=== PATIENT | male | born 1975 | race Caucasian/White ===

== ENCOUNTER 2020-08-27 12:32 | Outpatient (REF) | payer BC, SELFPAY | END 2020-08-27 12:33 | disposition home or self-care (01) | LOC: HO.LAB 12:32 | PROVIDERS: PCP Physician Assistant; Visit Provider Internal Medicine | DX: Z20.828 Contact with and (suspected) exposure to other viral communicable diseases (principal) | CPT/HCPCS: C9803; U0003 ==

== ENCOUNTER 2021-07-24 15:34 | Outpatient (REF) | payer BC, SELFPAY ==
--- NOTE | ~2021-07-24 | XR_ITS ---
EXAMINATION: XR FOOT-BILATERAL CLINICAL INFORMATION: Right foot pain. COMPARISON: None TECHNIQUE: 3 views each of both feet were obtained. FINDINGS: Right foot: Mild osteoarthrosis is noted at the first MTP joint. Enthesopathy is noted at the insertional site of the Achilles tendon to the calcaneus. Accessory ossicle is noted adjacent to the cuboid. Otherwise, the visualized bones, the alignments are intact. The soft tissues are unremarkable. Left foot: The bony alignments are intact. The cortices are intact. Accessory ossicle is noted adjacent to the cuboid. Significant enthesopathy at the insertional site of the Achilles tendon to the calcaneus and small posterior plantar calcaneal spur. XR/XR foot LT min 3V IMPRESSION: 1. Mild osteoarthrosis of the right first MTP joint. 2. Enthesopathy is at the insertional site of the Achilles tendon to the calcaneus seen bilaterally (left greater than right). 3. Small left posterior plantar calcaneal spur.
--- NOTE | ~2021-07-24 | XR_ITS ---
EXAMINATION: XR FOOT-BILATERAL CLINICAL INFORMATION: Right foot pain. COMPARISON: None TECHNIQUE: 3 views each of both feet were obtained. FINDINGS: Right foot: Mild osteoarthrosis is noted at the first MTP joint. Enthesopathy is noted at the insertional site of the Achilles tendon to the calcaneus. Accessory ossicle is noted adjacent to the cuboid. Otherwise, the visualized bones, the alignments are intact. The soft tissues are unremarkable. Left foot: The bony alignments are intact. The cortices are intact. Accessory ossicle is noted adjacent to the cuboid. Significant enthesopathy at the insertional site of the Achilles tendon to the calcaneus and small posterior plantar calcaneal spur. XR/XR foot RT min 3V IMPRESSION: 1. Mild osteoarthrosis of the right first MTP joint. 2. Enthesopathy is at the insertional site of the Achilles tendon to the calcaneus seen bilaterally (left greater than right). 3. Small left posterior plantar calcaneal spur.
== END 2021-07-24 15:35 | disposition home or self-care (01) ==
LOC: HO.XRAY 15:34
PROVIDERS: PCP Physician Assistant; Visit Provider Nurse Practitioner Family
DX: M79.671 Pain in right foot (principal); M79.672 Pain in left foot
CPT/HCPCS: 73630

== ENCOUNTER 2021-07-25 08:22 | Outpatient (REF) | payer BC, SELFPAY ==
[2021-07-25 08:44] LABS: MANUAL DIFF FLAG NO
[2021-07-25 09:37] LABS: Basophils Percent Auto 0.5 % (0-2); Eosinophils Absolute Auto 0.3 X10*3/uL (0.0-0.4); Eosinophils Percent Auto 4.7 % (0-4); Hematocrit 43.1 % (42.0-52.0); Hemoglobin 14.4 g/dl (14.0-18.0); Imm Gran Abs Auto 0.02 X10*3/uL (0.00-0.03); Imm Gran Pct Auto 0.3 % (0.0-0.4); Lymphocytes Absolute Auto 2.7 X10*3/uL (1.2-4.9); Lymphocytes Percent Auto 36.7 % (20-40); Mean Corpuscular HGB Conc 33.4 g/dl (31.0-36.0); Mean Corpuscular Hemoglobin 29.2 pg (27.0-33.0); Mean Corpuscular Volume 87.4 fL (80.0-98.0); Mean Platelet Volume 9.7 fL (9.4-12.4); Monocytes Absolute Auto 0.6 X10*3/uL (0.1-1.2); Monocytes Percent Auto 8.5 % (2-11); Neutrophils Absolute Auto 3.6 x10*3/uL (2.0-8.3); Neutrophils Percent Auto 49.3 % (45-73); Platelet Count 241 X10*3/uL (160-400); Red Blood Count 4.93 X10*6/uL (4.60-5.80); Red Cell Distribution Width 13.2 % (11.0-16.0); White Blood Count 7.3 X10*3/uL (4.8-10.8)
[2021-07-25 09:40] LABS: Estimated Average Glucose 148 mg/dL; Hemoglobin A1c % 6.8 %
[2021-07-25 09:48] LABS: Glucose Fasting 135 mg/dL (60-99)
[2021-07-25 10:01] LABS: Alanine Aminotransferase 17 U/L (0-40); Albumin Level 4.3 g/dL (3.5-5.0); Alkaline Phosphatase 66 U/L (39-117); Anion Gap 10 (12-20); Aspartate Amino Transferase 14 U/L (5-37); Bilirubin Total 0.5 mg/dL (0.0-1.0); Blood Urea Nitrogen 15 mg/dL (9-16); Calcium 9.5 mg/dL (8.4-10.2); Carbon Dioxide 27 mmol/L (22-29); Chloride 110 mmol/L (96-108); Cholesterol 216 mg/dL; Estimated Glomerular Filt Rate > 60; Glucose Fasting 135 mg/dL (60-99); HDL Cholesterol 35 mg/dL; LDL Cholesterol Calculated 152 mg/dl; Potassium 4.3 mmol/L (3.3-5.1); Sodium 143 mmol/L (135-145); Triglycerides 145 mg/dL
[2021-07-25 10:02] LABS: Uric Acid 7.6 mg/dL (3.4-7.0)
== END 2021-07-25 08:23 | disposition home or self-care (01) ==
LOC: HO.LAB 08:22
PROVIDERS: PCP Physician Assistant; Visit Provider Nurse Practitioner Family
DX: E11.9 Type 2 diabetes mellitus without complications (principal); M10.9 Gout, unspecified; E78.00 Pure hypercholesterolemia, unspecified; I10 Essential (primary) hypertension
CPT/HCPCS: 36415; 80053; 80061; 82947; 83036; 84550; 85025

== ENCOUNTER 2022-02-22 09:07 | Outpatient (REF) | payer BC, SELFPAY ==
[2022-02-22 10:57] LABS: Alanine Aminotransferase 19 U/L (0-40); Albumin Level 4.4 g/dL (3.5-5.0); Alkaline Phosphatase 75 U/L (39-117); Anion Gap 14 (12-20); Aspartate Amino Transferase 18 U/L (5-37); Bilirubin Total 0.6 mg/dL (0.0-1.0); Blood Urea Nitrogen 16 mg/dL (9-16); Calcium 9.4 mg/dL (8.4-10.2); Carbon Dioxide 21 mmol/L (22-29); Chloride 109 mmol/L (96-108); Cholesterol 207 mg/dL; Estimated Glomerular Filt Rate > 60; Glucose Fasting 112 mg/dL (60-99); HDL Cholesterol 37 mg/dL; LDL Cholesterol Calculated 149 mg/dl; Potassium 4.2 mmol/L (3.3-5.1); Sodium 140 mmol/L (135-145); Total Protein 7.3 g/dL (6.5-8.0); Triglycerides 107 mg/dL; Uric Acid 5.8 mg/dL (3.4-7.0)
[2022-02-22 10:59] LABS: Estimated Average Glucose 128 mg/dL; Hemoglobin A1c % 6.1 %
[2022-02-22 11:03] LABS: Prostate Specific Antigen Scr 0.72 ng/mL (<0.05-4.0); TSH reflex Free T4 1.71 uIU/mL (0.32-4.0)
[2022-02-22 11:17] LABS: Creatinine Urine 105.08 mg/dL; Microalbum/Creatinine Ratio Ur 5.7 ug/mg cr
== END 2022-02-22 09:08 | disposition home or self-care (01) ==
LOC: HO.LAB 09:07
PROVIDERS: PCP Physician Assistant; Visit Provider Physician Assistant
DX: E11.9 Type 2 diabetes mellitus without complications (principal); E78.5 Hyperlipidemia, unspecified; M10.9 Gout, unspecified; Z12.5 Encounter for screening for malignant neoplasm of prostate
CPT/HCPCS: 36415; 80053; 80061; 82043; 83036; 84153; 84443; 84550

== ENCOUNTER 2023-02-09 06:45 | Outpatient (REF) | payer BC, SELFPAY ==
[2023-02-09 07:53] LABS: Hematocrit 42.1 % (42.0-52.0); Hemoglobin 14.4 g/dl (14.0-18.0); Mean Corpuscular HGB Conc 34.2 g/dl (31.0-36.0); Mean Corpuscular Volume 84.7 fL (80.0-98.0); Mean Platelet Volume 9.6 fL (9.4-12.4); Platelet Count 263 X10*3/uL (160-400); Red Blood Count 4.97 X10*6/uL (4.60-5.80); Red Cell Distribution Width 13.1 % (11.0-16.0); White Blood Count 10.1 X10*3/uL (4.8-10.8)
[2023-02-09 08:03] LABS: Estimated Average Glucose 131 mg/dL; Hemoglobin A1c % 6.2 %
[2023-02-09 08:29] LABS: Alanine Aminotransferase 21 U/L (0-40); Albumin Level 4.2 g/dL (3.5-5.0); Alkaline Phosphatase 74 U/L (39-117); Anion Gap 12 (12-20); Aspartate Amino Transferase 17 U/L (5-37); Bilirubin Total 0.6 mg/dL (0.0-1.0); Blood Urea Nitrogen 15 mg/dL (9-16); Calcium 9.4 mg/dL (8.4-10.2); Carbon Dioxide 24 mmol/L (22-29); Chloride 109 mmol/L (96-108); Cholesterol 208 mg/dL; Estimated Glomerular Filt Rate > 60; Glucose Fasting 122 mg/dL (60-99); HDL Cholesterol 36 mg/dL; LDL Cholesterol Calculated 145 mg/dl; Potassium 4.3 mmol/L (3.3-5.1); Sodium 141 mmol/L (135-145); Total Protein 7.1 g/dL (6.5-8.0); Triglycerides 135 mg/dL
[2023-02-09 08:50] LABS: TSH reflex Free T4 3.38 uIU/mL (0.32-4.0)
[2023-02-09 09:18] LABS: Creatinine Urine 125.24 mg/dL; Microalbum/Creatinine Ratio Ur 4.7 ug/mg cr
== END 2023-02-09 06:46 | disposition home or self-care (01) ==
LOC: HO.LAB 06:45
PROVIDERS: PCP Physician Assistant; Visit Provider Physician Assistant
DX: E11.9 Type 2 diabetes mellitus without complications (principal); E78.2 Mixed hyperlipidemia
CPT/HCPCS: 36415; 80053; 80061; 82043; 83036; 84443; 85027

== ENCOUNTER 2023-04-11 10:32 | Outpatient (REF) | payer BC, SELFPAY ==
--- NOTE | ~2023-04-11 | US_ITS ---
EXAMINATION: US SCROTUM CLINICAL INFORMATION: Scrotal pain. COMPARISON: None available. TECHNIQUE: A sonogram of the scrotum was performed assessing gregory-scale appearance and color Doppler flow. Spectral Doppler analysis of the arterial and venous flow were performed in the testes bilaterally. FINDINGS: RIGHT: Right testicle measures 4.7 x 2.1 x 3.0 cm, volume 15.5 mL. 4 mm right epididymal cyst. Testicular microlithiasis. Spectral Doppler analysis of the arterial and venous flow is normal in the right testis. Right epididymis appears asymmetrically enlarged with respect to the contralateral side however without hypervascularity, given the provided images a discrete epididymal lesion would be difficult to entirely exclude. Small hydrocele containing debris. No right varicocele is seen. Right epididymal Doppler flow is normal. LEFT: Left testicle measures 4.5 x 2.2 x 3.4 cm, volume 17.6 mL. Testicular microlithiasis. Few small epididymal head cysts measuring 2 mm. No suspicious mass. Spectral Doppler analysis of the arterial and venous flow is normal in the left testis. Left epididymal head is normal in size. Trace left hydrocele. No left varicocele is seen. Left epididymal Doppler flow is normal. US/US scrotum IMPRESSION: 1. Right epididymis appears asymmetrically enlarged with respect to the contralateral side however without hypervascularity, possibly secondary to tubular ectasia of the epididymis. Given the provided images a discrete epididymal lesion would be difficult to entirely exclude and therefore short interval follow-up scrotal ultrasound is recommended with attention to the epididymal head. 2. Small right hydrocele containing debris. Trace left hydrocele. 3. Testicular microlithiasis is present without intratesticular mass.
== END 2023-04-11 10:33 | disposition home or self-care (01) ==
LOC: HO.HMGCX 10:32
PROVIDERS: PCP Physician Assistant; Visit Provider Physician Assistant
DX: N50.82 Scrotal pain (principal)
CPT/HCPCS: 76870

== ENCOUNTER 2023-06-22 11:54 | Outpatient (AMB) | payer BC, SELFPAY ==
--- NOTE | 2023-06-22 11:54 | MHC.PC.OV ---
Vital Signs 06/22/23 11:55 Height 5 ft 7 in Weight 264 lb 8 oz BMI 41.4 BP 130/82 Blood Pressure Location Lt brachial Position Sitting Respiration 17 Pulse 75 Pulse Source Pulse Oximeter Pulse Oximetry (%) 98 Oxygen Delivery Method Room Air Intake Visit Reasons: f/u DMII Intake Note: Patient is here to follow up on DMII. Cardiac Sonographer Required: No Accompanied by: Self / Same As Patient Allergies peach [[place]] Allergy (Intermediate, Verified 06/22/23 12:00) SCRATCHY EARS AND BACK OF THROAT apple [Apple] Allergy (Unknown, Verified 06/22/23 12:00) SCRATCHY EARS, BACK OF THROAT Medication List - Last Reconciled 06/22/23 by Contreras Rodriguez PA-C [Diabetic foot inserts As directed] semaglutide 0.25 mg (0.368 mL) subcut QWEEK 4 weeks Tobacco use date assessed: 02/10/23 Dental Screening Dental Screen Date: 06/22/23 Did you have a dental visit in the last 12 months?: No Did you have a dental problem in the last 6 months where you did not have access to dental care?: No Was dental information given to patient?: Patient declined HPI f/u DMII HPI Details Patient is a 47-year-old male here FOR FOLLOW-UP VISIT ?Patient has a past medical history significant for obesity, type 2 diabetes, gout. .. Chronic Achilles tendinitis: Followed by Podiatry, has done physical therapy and tried anti-inflammatory medications without much relief. Has now has new shoe inserts which are somewhat helpful. ? He wants to be more physically active though his hindered by his bilateral foot pain and swelling on upon physical activity. He is now very frustrated with his bilateral Achilles tendinitis as he has not been able to be more physically active due to his Achilles pain . He would like a 2nd opinion from orthopedics .. Obesity: Fortunately HAS NOT LOST ANY WEIGHT SINCE LAST OFFICE VISIT.. Has been started on Ozempic 0.25 mg. PLAN: Advised to increase a sent back dose to 0.5 mg weekly. .. DMII:? Patient cannot tolerate metformin. Has been started on Ozempic, denies any side effects. Unfortunately has not gotten fasting labs done and will do so in the next month. .. Hyperlipidemia:? Have noted elevated total cholesterol and LDL.? We did discuss perhaps starting cholesterol medication though would like to hold off and work on lifestyle management of his cholesterol at this time. [facility] Surgical History History of shoulder surgery Family History Father HIV (human immunodeficiency virus infection) Cirrhosis Substance use disorder Mental health disorder Mother Diabetes Maternal Grandmother Diabetes Hypertension Maternal Aunt Stomach cancer Maternal Aunt Breast cancer Maternal Grandmother Ovarian cancer Social History Housing: House Alcohol intake: current Alcohol intake frequency: holidays/special occasions only Patient Tobacco Use Status: Tobacco use Unknown (Patient has a cigar once in a while) Tobacco use type: Cigar e-Cigarette/Vaping Use: Never Used Substance Use Type: Marijuana service: No Current occupational status: employed 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 Augusto Laboy, Crystal Shukla, Ricky Zamorano and colleagues, with an educational ankit from [employer]. Review of Systems Const Denies headache(s) Eyes Denies loss of vision ENT Denies vertigo, Denies dizziness, Denies headache(s) and Denies sore throat Card Denies chest pain, Denies leg edema and Denies lightheadedness Resp Denies cough, Denies hemoptysis and Denies wheezing GI Denies abdominal pain, Denies melena, Denies constipation, Denies diarrhea and Denies vomiting Denies dysuria, Denies urinary frequency and Denies urinary urgency Musc Denies arthralgias, Denies joint swelling, Denies numbness and Denies tingling Neuro Denies Abnormal speech present, Denies behavioral changes, Denies vertigo, Denies dizziness, Denies headache(s), Denies loss of vision, Denies memory loss, Denies numbness and Denies tingling Psych Denies anxiety, Denies behavioral changes, Denies depression, Denies memory loss and Denies panic attacks Ori/Lymph Denies easy bleeding and Denies easy bruising Aller/Immun Denies wheezing Physical exam (Primary Care) Vital Signs: Last Vital Signs Pulse 75 06/22/23 11:55 Resp 17 06/22/23 11:55 BP 130/82 06/22/23 11:55 Pulse Ox 98 06/22/23 11:55 Oxygen Delivery Method Room Air 06/22/23 11:55 BMI result Body Mass Index 41.4 BMI Assessment/Plan discussion: High Tobacco/Smoking Status: Tobacco use Status Tobacco use date assessed 02/10/23 06/22/23 11:54 Patient Tobacco Use Status Tobacco use Unknown (Patient 06/22/23 11:54 has a cigar once in a while ) Tobacco use type Cigar 06/22/23 11:54 e-Cigarette/Vaping Use Never Used 06/22/23 11:54 Thrive Assessment: Date of Thrive Assessment Date Thrive assessed 02/10/23 06/22/23 11:54 Const Other: Morbidly obese General: no acute distress, alert and awake Nutritional Appearance: well nourished Orientation/consciousness: oriented to person, oriented to place and oriented to time HENMT Ears: TM's normal bilaterally General nose exam: Normal nasal mucous membranes and turbinates present Eyes Conjunctivae: conjunctivae normal Sclerae: sclerae normal Pupils: Equal, round and reactive pupils present Neck Neck: Yes no lymphadenopathy and Yes no JVD Thyroid: Thyroid normal Carotids: no bruits Resp Effort & Inspection: normal respiratory effort and not tachypneic Auscultation: no crackles, no rales, no rhonchi and no wheezes Cardio Rate: regular rate Rhythm: regular rhythm Heart sounds: no murmurs and normal S1 and S2 GI Palpation (GI): Soft to palpation, nontender, no hepatomegaly and no splenomegaly Auscultation: normal bowel sounds Skin General skin exam: no rashes or lesions noted and dry skin Neuro General: oriented to person, oriented to place and oriented to time Cranial nerves: Yes Equal, round and reactive pupils present Speech: No Abnormal speech present Gait exam (Neuro): Normal gait present Motor exam (neuro): no tremor noted Extrem Right upper extremity: full ROM Left upper extremity: full ROM Right lower extremity: full ROM; no edema Left lower extremity: full ROM; no edema Psych Mental Status: mental status grossly normal Speech and movement: Normal speech and movement present Affect: normal affect Attitude: cooperative Thought process: Normal thought process present Assessment and Plan Assessment & Plan (1) Diabetes type 2, controlled: Code(s): E11.9 - Type 2 diabetes mellitus without complications Qualifiers: Diabetes mellitus complication status: without complication Diabetes mellitus intermediate manager insulin use: without intermediate manager use Qualified Code(s): E11.9 - Type 2 diabetes mellitus without complications Plan: Patient's type 2 diabetes fairly well controlled with Ozempic. Advised to increase GLP1 dose to 0.5 mg weekly. Goal A1c to remain below 7.0 (2) Obese: Code(s): E66.9 - Obesity, unspecified Qualifiers: Body mass index: BMI 40.0-44.9 Obesity classification: adult class 3 (BMI >= 40) Obesity type: due to excess calories Serious obesity comorbidity presence: with serious comorbidity Qualified Code(s): E66.01 - Morbid (severe) obesity due to excess calories; Z68.41 - Body mass index [BMI] 40.0-44.9, adult Plan: As above patient does understand his BMI is above 40 and has had difficult time losing weight due to his chronic bilateral heel and Achilles pain. (3) HLD (hyperlipidemia): Code(s): E78.5 - Hyperlipidemia, unspecified Qualifiers: Hyperlipidemia type: mixed hyperlipidemia Qualified Code(s): E78.2 - Mixed hyperlipidemia Plan: Patient's cholesterol slightly elevated for his cardiovascular risk. Offered him statin therapy though he declines will like to work on dietary modifications. Goal LDL to be below 100 (4) Tendonitis, Achilles: Code(s): M76.60 - Achilles tendinitis, unspecified leg Qualifiers: Laterality: bilateral Qualified Code(s): M76.61 - Achilles tendinitis, right leg; M76.62 - Achilles tendinitis, left leg Plan: As per HPI patient continues to have bilateral Achilles tendon tendinitis. Has seen a sole seamer who recommended specialist physical therapy and shoe inserts which he has done without much relief. Whenever he is physically active his bilateral Achilles tendons start to become painful causing him not to be able to be physically active. He would like a 2nd opinion with forest fire prevention specialist to evaluate his ankle and Achilles tendinitis. Orders: Orders Hemoglobin A1c 06/22/23 E11.9 - Type 2 diabetes mellitus without complications Prostate Specific Antigen Scr 06/22/23 E11.9 - Type 2 diabetes mellitus without complications, Z12.5 - Encounter for screening for malignant neoplasm of prostate Referrals Orthopedics Referral M76.61 - Achilles tendinitis, right leg, M76.62 - Achilles tendinitis, left leg Medications: New prednisone Take 3 tablets x 3 days, 2 tablets x 3 days, 1 tablet x3 days 10 mg PO DIRECTED 9 days 18 tabs 0RF M76.61 - Achilles tendinitis, right leg, M76.62 - Achilles tendinitis, left leg Changed From semaglutide 0.25 mg (0.368 mL) subcut QWEEK 4 weeks 3 mL 2RF E11.9 - Type 2 diabetes mellitus without complications To semaglutide 0.5 mg (0.736 mL) subcut QWEEK 4 weeks 2.944 mL 2RF E11.9 - Type 2 diabetes mellitus without complications Coding Level of Care Code Est Pt Level 4 (35997) Diagnoses Controlled type 2 diabetes mellitus without complication, without long-term current use of insulin E11.9 Diabetes mellitus complication status: without complication Diabetes mellitus mcfp insulin use: without mcfp use Class 3 severe obesity due to excess calories with serious comorbidity and body mass index (BMI) of 40.0 to 44.9 in adult E66.01; Z68.41 Body mass index: BMI 40.0-44.9 Obesity classification: adult class 3 (BMI >= 40) Obesity type: due to excess calories Serious obesity comorbidity presence: with serious comorbidity Mixed hyperlipidemia E78.2 Hyperlipidemia type: mixed hyperlipidemia Achilles tendinitis of both lower extremities M76.61; M76.62 Laterality: bilateral
[2023-06-22 11:55] VITALS: BP 130/82; PULSE 75; RESP 17; O2SAT 98; BMI 41.4
== END 2023-06-22 12:18 | disposition home or self-care (01) ==
PROVIDERS: PCP Physician Assistant; Visit Provider Physician Assistant
DX: E11.9 Type 2 diabetes mellitus without complications (principal); E66.01 Morbid (severe) obesity due to excess calories; Z68.41 Body mass index [BMI] 40.0-44.9, adult; E78.2 Mixed hyperlipidemia; M76.61 Achilles tendinitis, right leg; M76.62 Achilles tendinitis, left leg
CPT/HCPCS: 99214

== ENCOUNTER 2023-07-13 09:00 | Outpatient (AMB) | payer BC, SELFPAY ==
--- NOTE | 2023-07-13 09:03 | A.OFFVIS_ITS ---
Intake Intake Visit Reasons: Hydrocele/epidiymitis Intake Note: New Patient presents for initial visit for hydrocele/epidiymitis Urology Medications: none Blood Thinner: none Bee Farmer Required: No Accompanied by: Self / Same As Patient Allergies peach [[place]] Allergy (Intermediate, Verified 07/13/23 09:37) SCRATCHY EARS AND BACK OF THROAT apple [Apple] Allergy (Unknown, Verified 07/13/23 09:37) SCRATCHY EARS, BACK OF THROAT Medication List - Last Reconciled 07/13/23 by SRINI TillmanBC [Diabetic foot inserts As directed] semaglutide 0.5 mg (0.736 mL) subcut QWEEK 4 weeks HPI HPI Comments History of Present Illness Details Albaro is very pleasant 47-year-old male patient of Dr. Rodriguez. He has a past medical history of Achilles tendinitis, hyperlipidemia, diabetes type 2, and gout. He presents to the office today as a new patient for scrotal/testicular discomfort. In discussion with the patient today reports to be doing and feeling well. He reports noting new onset scrotal pain approximately 1 month ago at which time a scrotal ultrasound was ordered and performed. These results were reviewed with the patient today. Right epididymis appears asymmetrically enlarged with respect to the contralateral side however without hypervascularity, possibly secondary to tubular ectasia of the epididymis. Given the provided images a discrete epididymal lesion would be difficult to entirely exclude and therefore short interval follow-up scrotal ultrasound is recommended with attention to the epididymal head. Small right hydrocele containing debris. Trace left hydrocele. Testicular microlithiasis is present without intratesticular mass. In assessment of the patient today bilateral epididymal head tenderness left side greater than right otherwise no lesions, drainage, and or masses palpated. When asked patient reports symptoms have since subsided and feels pain is significantly improved. He denies any issues with his urination. In office urinalysis results reviewed with the patient today. When asked he denies urinary urgency, urinary frequency, incontinence, nocturia, hematuria, dysuria, foul smelling urine, changes to urinary stream, flank pain, fever, and or chills. He is happy with his current voiding parameters. Discussed at length potential causes for scrotal/testicular discomfort patient had been experiencing. Discussed seeking medical treatment if symptoms reoccur and or pain is associated with nausea and vomiting. He discusses following up with [facility] for ongoing Achilles tendinitis. He otherwise denies any other issues or concerns at this time. [facility] Surgical History History of shoulder surgery Family History Father HIV (human immunodeficiency virus infection) Cirrhosis Substance use disorder Mental health disorder Mother Diabetes Maternal Grandmother Diabetes Hypertension Maternal Aunt Stomach cancer Maternal Aunt Breast cancer Maternal Grandmother Ovarian cancer Social History Housing: House Alcohol intake: current Alcohol intake frequency: holidays/special occasions only Patient Tobacco Use Status: Tobacco use Unknown (Patient has a cigar once in a while) Tobacco use type: Cigar e-Cigarette/Vaping Use: Never Used Substance Use Type: Marijuana service: No Current occupational status: employed 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 Cognitive needs: No Hearing needs: No Vision needs: No Review of Systems Const Reports no additional complaints Eyes Reports no additional complaints ENT Reports no additional complaints Card Reports as per HPI Resp Reports no additional complaints GI Reports no additional complaints Reports as per HPI Musc Reports as per HPI Neuro Reports no additional complaints Psych Reports no additional complaints Endo Reports as per HPI Ori/Lymph Reports no additional complaints Aller/Immun Reports no additional complaints Physical Exam Const General: cooperative, healthy appearing, comfortable, no acute distress, well developed, alert and awake Nutritional Appearance: overweight Orientation/consciousness: patient oriented x3 Limitations: no limitations HEENT Head: Yes normal to inspection, Yes normocephalic and Yes atraumatic Ears: hearing grossly normal bilaterally Eyes General: appearance normal, both eyes and all related structures Neck Neck: Yes normal visual inspection and Yes trachea midline Chest Chest palpation & inspection: normal inspection of the chest Resp Effort & Inspection: normal respiratory effort and able to speak in complete sentences Cardio Rate: regular rate GI Inspection: Yes normal to inspection General: Yes no CVA tenderness Back/Spine/Pelvis Back: no CVA tenderness Skin General skin exam: no rashes or lesions noted Neuro General: patient oriented x3 Extrem General: Yes normal to inspection Psych Appearance: grossly normal and well kempt Mental Status: mental status grossly normal Speech and movement: Normal speech and movement present and Clear speech present Affect: normal affect Attitude: cooperative Thought process: Normal thought process present Thought content: Normal thought content present Insight: Good insight present (Psych) Judgement: Good judgement present (Psych) Results AMB Urinalysis, Automated UA Leukoctes 0 Dave/uL Last Edit by Praful Garza on 07/13/23 09:25 UA Nitrite Negative Last Edit by Praful Garza on 07/13/23 09:25 UA Urobilinogen 0.2 mg/dL Last Edit by Praful Garza on 07/13/23 09:25 UA Protein 0 mg/dL Last Edit by Praful Garza on 07/13/23 09:25 UA pH 6.0 Last Edit by Praful Garza on 07/13/23 09:25 UA Blood 0 Carlyle/uL Last Edit by Praful Garza on 07/13/23 09:25 UA Specific [place] 1.020 Last Edit by Praful Garza on 07/13/23 09:25 UA Ketone Negative Last Edit by Praful Garza on 07/13/23 09:25 UA Bilirubin 0 mg/dL Last Edit by Praful Garza on 07/13/23 09:25 UA Glucose 0 mg/dL Last Edit by Praful Garza on 07/13/23 09:25 Results Reviewed Results Reviewed: Laboratory Last Values Urine pH (Auto) 6.0 07/13/23 09:06 Specific [place] (Auto) 1.020 07/13/23 09:06 Urine Protein (Auto) 0 mg/dL 07/13/23 09:06 Glucose (UA)(Auto) 0 mg/dL 07/13/23 09:06 Urine Ketones (Auto) Negative 07/13/23 09:06 Urine Blood (Auto) 0 [place]/uL 07/13/23 09:06 Urine Nitrite (Auto) Negative 07/13/23 09:06 Urine Bilirubin (Auto) 0 mg/dL 07/13/23 09:06 Urine Urobilinogen (Auto) 0.2 mg/dL 07/13/23 09:06 Leukocyte Esterase (Auto) 0 Dave/uL 07/13/23 09:06 Date of Service: 04/11/23 EXAMINATION: US SCROTUM FINDINGS: RIGHT: Right testicle measures 4.7 x 2.1 x 3.0 cm, volume 15.5 mL. 4 mm right epididymal cyst. Testicular microlithiasis. Spectral Doppler analysis of the arterial and venous flow is normal in the right testis. Right epididymis appears asymmetrically enlarged with respect to the contralateral side however without hypervascularity, given the provided images a discrete epididymal lesion would be difficult to entirely exclude. Small hydrocele containing debris. No right varicocele is seen. Right epididymal Doppler flow is normal. LEFT: Left testicle measures 4.5 x 2.2 x 3.4 cm, volume 17.6 mL. Testicular microlithiasis. Few small epididymal head cysts measuring 2 mm. No suspicious mass. Spectral Doppler analysis of the arterial and venous flow is normal in the left testis. Left epididymal head is normal in size. Trace left hydrocele. No left varicocele is seen. Left epididymal Doppler flow is normal. IMPRESSION: 1. Right epididymis appears asymmetrically enlarged with respect to the contralateral side however without hypervascularity, possibly secondary to tubular ectasia of the epididymis. Given the provided images a discrete epididymal lesion would be difficult to entirely exclude and therefore short interval follow-up scrotal ultrasound is recommended with attention to the epididymal head. 2. Small right hydrocele containing debris. Trace left hydrocele. 3. Testicular microlithiasis is present without intratesticular mass. Assessment & Plan Assessment & Plan (1) Scrotal pain: Code(s): N50.82 - Scrotal pain Plan In office urinalysis results reviewed the patient today; as noted above. Recent scrotal ultrasound results reviewed with the patient today; as noted above. Patient with mild bilateral epididymal head tenderness noted on exam today otherwise no abnormalities noted; as noted above. Patient reports pain has since subsided; discussed calling office and or seeking medical treatment if symptoms reoccur or pain is associated with nausea and vomiting. Reassurance provided Patient denies any bothersome urinary issues or concerns at this time. Patient reports be happy with current voiding parameters. Follow-up as needed Orders: Orders AMB Urinalysis Automated Today Z13.9 - Encounter for screening, unspecified Patient Instructions: The patient had an opportunity to ask questions regarding the treatment plan. All questions were answered. Physical exam, labs, and imaging were discussed and reviewed in detail. As well as risks, benefits, and discussion of treatment choices. No major barriers to understanding were identified. The patient expressed understanding and agreement with the above treatment plan. The patient was made aware they should contact our office by phone for worsening of their current condition, the appearance of new symptoms, or with any questions or concerns. Compliance is encouraged with any medications and follow up testing that is ordered. It is a privilege to be allowed the opportunity to participate in? your urological care.? Again, if you have any questions or concerns If you have any questions or concerns please do not hesitate to contact me. The office is [phone]. This note is constructed using voice recognition software. While every effort has been made to ensure accuracy school supervisor errors may have been included. Yours sincerely, RAVINDRA Tillman Coding Level of Care Code New Pt Level 3 (93540) Diagnoses Scrotal pain N50.82
== END 2023-07-13 09:37 | disposition home or self-care (01) ==
PROVIDERS: PCP Physician Assistant; Referring Provider Physician Assistant; Visit Provider Nurse Practitioner Family
DX: Z13.9 Encounter for screening, unspecified (principal); N50.82 Scrotal pain
CPT/HCPCS: 99203

== ENCOUNTER → 2023-07-13 09:00 | Outpatient (BNVA) | payer BC, SELFPAY | PROVIDERS: PCP Physician Assistant; Referring Provider Physician Assistant; Visit Provider Nurse Practitioner Family | DX: N50.82 Scrotal pain (principal) | CPT/HCPCS: 81003 ==

== ENCOUNTER 2023-10-11 10:56 | Outpatient (AMB) | payer BC, SELFPAY ==
--- NOTE | 2023-10-11 10:57 | MHC.PC.OV ---
Vital Signs 10/11/23 10:58 Height 5 ft 7 in Weight 264 lb BMI 41.3 BP 128/70 Blood Pressure Location Lt brachial Position Sitting Pulse 70 Pulse Source Pulse Oximeter Pulse Oximetry (%) 98 Oxygen Delivery Method Room Air Intake Visit Reasons: 3 month f/u Director Skills Required: No Senior It Architect: Not Required per policy Accompanied by: Self / Same As Patient Allergies peach [Glades] Allergy (Intermediate, Verified 10/11/23 11:07) SCRATCHY EARS AND BACK OF THROAT apple [Apple] Allergy (Unknown, Verified 10/11/23 11:07) SCRATCHY EARS, BACK OF THROAT Medication List - Last Reconciled 10/11/23 by Contreras Rodriguez PA-C [Diabetic foot inserts As directed] semaglutide 0.5 mg (0.736 mL) subcut QWEEK 4 weeks Tobacco use date assessed: 10/11/23 Dental Screening Dental Screen Date: 10/11/23 Did you have a dental visit in the last 12 months?: Yes Did you have a dental problem in the last 6 months where you did not have access to dental care?: No Was dental information given to patient?: Patient has dentist HPI 3 month f/u HPI Details Patient is a 48-year-old male here FOR FOLLOW-UP VISIT ?Patient has a past medical history significant for obesity, type 2 diabetes, gout. .. Chronic Achilles tendinitis: Followed by Podiatry, has done physical therapy and tried anti-inflammatory medications without much relief. Has now has new shoe inserts which are somewhat helpful. ? He wants to be more physically active though his hindered by his bilateral foot pain and swelling on upon physical activity. He is now very frustrated with his bilateral Achilles tendinitis as he has not been able to be more physically active due to his Achilles pain . .. Obesity: Fortunately HAS NOT LOST ANY WEIGHT SINCE LAST OFFICE VISIT. Continues on Ozempic 0.5 mg PLAN: Will try to increase his Ozempic dose to 1 mg weekly for added benefits of weight loss. .. DMII:? Patient cannot tolerate metformin. Has been started on Ozempic, denies any side effects. Unfortunately has not gotten fasting labs done in near future. He does see an eye doctor on annual basis and gets diabetic eye exams. .. Hyperlipidemia:? Have noted elevated total cholesterol and LDL.? We did discuss perhaps starting cholesterol medication though would like to hold off and work on lifestyle management of his cholesterol at this time. Laboratory Tests 02/09/23 06:55 Fasting Glucose 122 H Hemoglobin A1c % 6.2 Cholesterol 208 LDL Cholesterol, C alc 145 Laboratory Tests 07/25/21 08:42 Hemoglobin A1c % 6.8 [facility] Surgical History History of shoulder surgery Family History Father HIV (human immunodeficiency virus infection) Cirrhosis Substance use disorder Mental health disorder Mother Diabetes Maternal Grandmother Diabetes Hypertension Maternal Aunt Stomach cancer Maternal Aunt Breast cancer Maternal Grandmother Ovarian cancer Social History Housing: House Alcohol intake: current Alcohol intake frequency: holidays/special occasions only Patient Tobacco Use Status: Tobacco use Unknown (Patient has a cigar once in a while) Tobacco use type: Cigar e-Cigarette/Vaping Use: Never Used Substance Use Type: Marijuana service: No Current occupational status: employed 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 1. Little interest or pleasure in doing things: not at all 2. Feeling down, depressed, or hopeless: not at all 3. Trouble falling or staying asleep, or sleeping too much: not at all 4. Feeling tired or having little energy: not at all 5. Poor appetite or overeating: not at all 6. Feeling bad about yourself - or that you are a failure or have let yourself or your family down: not at all 7. Trouble concentrating on things, such as reading the newspaper or watching television: not at all 8. Moving or speaking so slowly that other people could have noticed. Or the opposite - being so fidgety or restless that you have been moving around a lot more than usual: not at all 9. Thoughts that you would be better off or of hurting yourself in some way: not at all Total score: 0 Depression Screening Interpretation: Negative Depression Screening Done: Yes 63622 - PHQ-9 Billing: Yes Source: Developed by Drs. Augusto Laboy, Crystal Shukla, Ricky Zamorano and colleagues, with an educational ankit from [employer]. Thrive Questionnaire Date Thrive assessed: 10/11/23 I am a: Patient What is your living situation today?: I have a steady place to live Within the past 12 months, did the food you bought not last and you didn't have the money to get more?: Never true Within the past 12 months, did you worry whether your food would run out before you got money to buy more?: Never true Do you have trouble paying for medicines?: No Do you have trouble getting transportation to medical appointments?: No Do you have trouble paying your heating and electricity bill?: No Do you have trouble taking care of your child, family member or friend?: No Do you have trouble with day-to-day activities such as bathing, preparing meals, shopping, managing finances, etc.?: No Are you currently unemployed and looking for a job?: No Are you interested in more education?: No Please select the resources that you would like help with: None THRIVE Score: 0 FRANCIS-7 AMB Questionnaire FRANCIS-7 Date FRANCIS - 7 assessed: 10/11/23 Feeling nervous, anxious, or on edge: 0 = Not at all Not being able to stop or control worryin = Not at all Worrying too much about different things: 0 = Not at all Trouble relaxin = Not at all Being so restless that it is hard to sit still: 0 = Not at all Becoming easily annoyed or irritable: 0 = Not at all Feeling afraid as if something awful might happen: 0 = Not at all Total FRANCIS-7 score (0-4 normal; 5-9 mild; 10-14 moderate; 15-21 severe): 0 Source: Developed by Drs. Augusto Laboy, Crystal Shukla, Ricky Zamorano and colleagues, with an educational ankit from [employer]. FRANCIS-7 Assessment Billing FRANCIS-7 Assessment Tool: FRANCIS-7 Assessment 47044 Review of Systems Const Denies headache(s) Eyes Denies loss of vision ENT Denies vertigo, Denies dizziness, Denies headache(s) and Denies sore throat Card Denies chest pain, Denies leg edema and Denies lightheadedness Resp Denies cough, Denies hemoptysis and Denies wheezing GI Denies abdominal pain, Denies melena, Denies constipation, Denies diarrhea and Denies vomiting Denies dysuria, Denies urinary frequency and Denies urinary urgency Musc Denies arthralgias, Denies joint swelling, Denies numbness and Denies tingling Neuro Denies Abnormal speech present, Denies behavioral changes, Denies vertigo, Denies dizziness, Denies headache(s), Denies loss of vision, Denies memory loss, Denies numbness and Denies tingling Psych Denies anxiety, Denies behavioral changes, Denies depression, Denies memory loss and Denies panic attacks Ori/Lymph Denies easy bleeding and Denies easy bruising Aller/Immun Denies wheezing Physical exam (Primary Care) Vital Signs: Last Vital Signs Pulse 70 10/11/23 10:58 BP 128/70 10/11/23 10:58 Pulse Ox 98 10/11/23 10:58 Oxygen Delivery Method Room Air 10/11/23 10:58 BMI result Body Mass Index 41.3 BMI Assessment/Plan discussion: High Tobacco/Smoking Status: Tobacco use Status Tobacco use date assessed 10/11/23 10/11/23 10:59 Patient Tobacco Use Status Tobacco use Unknown (Patient 10/11/23 10:59 has a cigar once in a while ) Tobacco use type Cigar 10/11/23 10:59 e-Cigarette/Vaping Use Never Used 10/11/23 10:59 PHQ-9: PHQ-9 Score PHQ-9: Total score 0 10/11/23 11:07 Depression Screening Interpretation: Negative Thrive Assessment: Date of Thrive Assessment Date Thrive assessed 10/11/23 10/11/23 10:59 Const General: healthy appearing, no acute distress, alert and awake Nutritional Appearance: well nourished Orientation/consciousness: oriented to person, oriented to place and oriented to time HENMT Ears: TM's normal bilaterally General nose exam: Normal nasal mucous membranes and turbinates present Eyes Conjunctivae: conjunctivae normal Sclerae: sclerae normal Pupils: Equal, round and reactive pupils present Neck Neck: Yes no lymphadenopathy and Yes no JVD Thyroid: Thyroid normal Carotids: no bruits Resp Effort & Inspection: normal respiratory effort and not tachypneic Auscultation: no crackles, no rales, no rhonchi and no wheezes Cardio Rate: regular rate Rhythm: regular rhythm Heart sounds: no murmurs and normal S1 and S2 GI Palpation (GI): Soft to palpation, nontender, no hepatomegaly and no splenomegaly Auscultation: normal bowel sounds Skin General skin exam: no rashes or lesions noted and dry skin Neuro General: oriented to person, oriented to place and oriented to time Cranial nerves: Yes Equal, round and reactive pupils present Speech: No Abnormal speech present Gait exam (Neuro): Normal gait present Motor exam (neuro): no tremor noted Extrem Right upper extremity: full ROM Left upper extremity: full ROM Right lower extremity: full ROM; no edema Left lower extremity: full ROM; no edema Psych Mental Status: mental status grossly normal Speech and movement: Normal speech and movement present Affect: normal affect Attitude: cooperative Thought process: Normal thought process present Results AMB Hemoglobin A1c AMB Hemoglobin A1c 6.5 % Last Edit by KITTY Lopez on 10/11/23 11:11 Assessment and Plan Assessment & Plan (1) Diabetes type 2, controlled: Code(s): E11.9 - Type 2 diabetes mellitus without complications Qualifiers: Diabetes mellitus complication status: without complication Diabetes mellitus termite renewal inspector insulin use: without termite renewal inspector use Qualified Code(s): E11.9 - Type 2 diabetes mellitus without complications Plan: Patient's type 2 diabetes well controlled with current dose of Ozempic. He is interested in maybe higher dose of Ozempic for added benefit of weight loss. Will send in 1 mg weekly. Goal A1c is to remain below 7.0 (2) Obese: Code(s): E66.9 - Obesity, unspecified Qualifiers: Obesity type: due to excess calories Obesity classification: adult class 3 (BMI >= 40) Serious obesity comorbidity presence: with serious comorbidity Body mass index: BMI 40.0-44.9 Qualified Code(s): E66.01 - Morbid (severe) obesity due to excess calories; Z68.41 - Body mass index [BMI] 40.0-44.9, adult Plan: Patient does understand his BMI is over 40 will try to work on being more physically active and adapt to better eating habits to reduce his weight.l Until now has not noted any weight loss with GLP 1 (3) HLD (hyperlipidemia): Code(s): E78.5 - Hyperlipidemia, unspecified Qualifiers: Hyperlipidemia type: mixed hyperlipidemia Qualified Code(s): E78.2 - Mixed hyperlipidemia Plan: Patient's cholesterol slightly elevated for his cardiovascular risk. Offered him statin therapy though he declines will like to work on dietary modifications. Goal LDL to be below 100 (4) Tendonitis, Achilles: Code(s): M76.60 - Achilles tendinitis, unspecified leg Qualifiers: Laterality: bilateral Qualified Code(s): M76.61 - Achilles tendinitis, right leg; M76.62 - Achilles tendinitis, left leg Plan: As per HPI patient continues to have bilateral Achilles tendon tendinitis. He has been working with knowing on orthopedic healthcare science specialist. Has had been using heel shoe inserts which have been helpful. Will be starting physical therapy again Orders: Orders Comprehensive [place]. Panel Fast Today E11.9 - Type 2 diabetes mellitus without complications Microalbumin, Random (w Creat) Today E11.9 - Type 2 diabetes mellitus without complications AMB Hemoglobin A1c Today E11.9 - Type 2 diabetes mellitus without complications Lipid Panel Today E78.2 - Mixed hyperlipidemia Medications: New semaglutide (Ozempic) 1 mg (0.75 mL) subcut QWEEK 4 weeks 3 mL 3RF E11.9 - Type 2 diabetes mellitus without complications On Hold semaglutide Hold Comment: Doctor's Order 0.5 mg (0.736 mL) subcut QWEEK 4 weeks 2.944 mL 2RF E11.9 - Type 2 diabetes mellitus without complications Coding Level of Care Code Est Pt Level 4 (47808) Diagnoses Controlled type 2 diabetes mellitus without complication, without long-term current use of insulin E11.9 Diabetes mellitus complication status: without complication Diabetes mellitus termite renewal inspector insulin use: without termite renewal inspector use Class 3 severe obesity due to excess calories with serious comorbidity and body mass index (BMI) of 40.0 to 44.9 in adult E66.01; Z68.41 Obesity type: due to excess calories Obesity classification: adult class 3 (BMI >= 40) Serious obesity comorbidity presence: with serious comorbidity Body mass index: BMI 40.0-44.9 Mixed hyperlipidemia E78.2 Hyperlipidemia type: mixed hyperlipidemia Achilles tendinitis of both lower extremities M76.61; M76.62 Laterality: bilateral Additional Codes FRANCIS-7 Assessment Billing - FRANCIS-7 Assessment Tool: FRANCIS-7 Assessment 49144 ([id number])
[2023-10-11 10:58] VITALS: BP 128/70; PULSE 70; O2SAT 98; BMI 41.3
== END 2023-10-11 11:23 | disposition home or self-care (01) ==
PROVIDERS: PCP Physician Assistant; Visit Provider Physician Assistant
DX: E11.9 Type 2 diabetes mellitus without complications (principal); E66.01 Morbid (severe) obesity due to excess calories; Z68.41 Body mass index [BMI] 40.0-44.9, adult; E78.2 Mixed hyperlipidemia; M76.61 Achilles tendinitis, right leg; M76.62 Achilles tendinitis, left leg
CPT/HCPCS: 83036; 99214

== ENCOUNTER 2024-02-14 14:36 | Outpatient (AMB) | payer BC, SELFPAY ==
--- NOTE | 2024-02-14 14:44 | A.OFFPC_ITS ---
Vital Signs 02/14/24 14:45 Height 5 ft 7 in Weight 266 lb 4 oz BMI 41.7 BP 142/80 H Blood Pressure Location Lt brachial Position Sitting Pulse 78 Pulse Source Pulse Oximeter Pulse Oximetry (%) 98 Oxygen Delivery Method Room Air Intake Visit Reasons: pe Intake Note: Patient is here today for a physical. [employer] Operations [employer] Chief Required: No Accompanied by: Self / Same As Patient Allergies peach [Pike] Allergy (Intermediate, Verified 02/14/24 15:21) SCRATCHY EARS AND BACK OF THROAT apple [Apple] Allergy (Unknown, Verified 02/14/24 15:21) SCRATCHY EARS, BACK OF THROAT Medication List - Last Reconciled 02/14/24 by Contreras Rodriguez PA-C [Diabetic foot inserts As directed] semaglutide (Ozempic) 1 mg (0.75 mL) subcut QWEEK 4 weeks Tobacco use date assessed: 10/11/23 Dental Screening Dental Screen Date: 10/11/23 HPI pe HPI Details Patient is a 48-year-old male here for annual physical ?Patient has a past medical history significant for obesity, type 2 diabetes, gout. .. Chronic Achilles tendinitis: Followed by Podiatry, has done physical therapy and tried anti-inflammatory medications without much relief. Has now has new shoe inserts which are somewhat helpful. ? He wants to be more physically active though his hindered by his bilateral foot pain and swelling on upon physical activity. He is now very frustrated with his bilateral Achilles tendinitis as he has not been able to be more physically active due to his Achilles pain . .. Obesity: Patient does understand his BMI is over 40 will continue working on physical activity and healthy eating habits. .. DMII:? Patient was on Ozempic though is not interested in further taking this medication due to pharmacy high demand and availability. Also was unable to tolerate metformin in the past though is willing to restart due to A1c being above 7 He does see an eye doctor on annual basis and gets diabetic eye exams. .. Hyperlipidemia:? Have noted elevated total cholesterol and LDL.? We did discuss perhaps starting cholesterol medication though would like to hold off and work on lifestyle management of his cholesterol at this time. Vaccine: UTD with COVId Vaccine , Need PCV (declines)? Decline Flu?? .. Colon cancer screening: Completed Cologuard in 2022- neg- repeat in 3 years Laboratory Tests 02/09/23 10/11/23 02/14/24 06:55 11:00 14:59 RBC 4.97 Hgb A1c (Clinic) 6.5 H 7.2 H Hemoglobin A1c % 6.2 PFSH Surgical History History of shoulder surgery Family History Father HIV (human immunodeficiency virus infection) Cirrhosis Substance use disorder Mental health disorder Mother Diabetes Maternal Grandmother Diabetes Hypertension Maternal Aunt Stomach cancer Maternal Aunt Breast cancer Maternal Grandmother Ovarian cancer Social History (Updated 02/14/24 @ 15:27 by Contreras Rodriguez PA-C) Housing: House Alcohol intake: current Alcohol intake frequency: holidays/special occasions only Patient Tobacco Use Status: Tobacco use Unknown (Patient has a cigar once in a while) Tobacco use type: Cigar e-Cigarette/Vaping Use: Never Used Substance Use Type: Marijuana service: No Current occupational status: employed 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 Augusto Laboy, Crystal Shukla, Ricky Zamorano and colleagues, with an educational ankit from [employer]. Review of Systems Const Denies body aches, Denies chills, Denies excessive sweating, Denies fatigue, Denies fever(s) and Denies headache(s) Eyes Denies blurry vision ENT Denies dysphagia, Denies vertigo, Denies dizziness, Denies headache(s), Denies hearing loss and Denies tinnitus Card Denies chest pain, Denies chest pain with activity, Denies syncope, Denies irregular heart rhythm and Denies dyspnea Resp Denies chest congestion, Denies cough, Denies hemoptysis, Denies dyspnea and Denies wheezing GI Denies abdominal pain, Denies melena, Denies hematochezia, Denies coffee ground emesis, Denies dysphagia, Denies diarrhea, Denies nausea and Denies vomiting Denies difficulty urinating, Denies dysuria, Denies urinary frequency, Denies urinary hesitancy and Denies urinary urgency Musc Denies arthralgias, Denies limited range of motion, Denies muscle cramps and Denies muscle weakness Skin/Breast Denies rash and Denies skin ulcer Neuro Denies Abnormal speech present, Denies confusion, Denies vertigo, Denies dizziness, Denies syncope, Denies headache(s), Denies memory loss and Denies seizure-like activity Psych Denies anxiety, Denies confusion, Denies depression, Denies memory loss, Denies panic attacks and Denies paranoia Endo Denies excessive sweating, Denies fatigue, Denies flushing, Denies polydipsia and Denies polyuria Aller/Immun Denies wheezing Physical exam (Primary Care) Vital Signs: Last Vital Signs Pulse 78 02/14/24 14:45 BP 142/80 H 02/14/24 14:45 Pulse Ox 98 02/14/24 14:45 Oxygen Delivery Method Room Air 02/14/24 14:45 BMI result Body Mass Index 41.7 Tobacco/Smoking Status: Tobacco use Status Tobacco use date assessed 10/11/23 02/14/24 14:55 Patient Tobacco Use Status Tobacco use Unknown (Patient 02/14/24 15:27 has a cigar once in a while ) Tobacco use type Cigar 02/14/24 15:27 e-Cigarette/Vaping Use Never Used 02/14/24 15:27 Thrive Assessment: Date of Thrive Assessment Date Thrive assessed 10/11/23 02/14/24 14:55 Const General: cooperative, comfortable, no acute distress, alert and awake; No confusion Orientation/consciousness: oriented to person, oriented to place, patient oriented x3 and No confusion HENMT Head: Yes normocephalic Ears: external ears normal and TM's normal bilaterally Face and sinus: No sinus tenderness Mouth: Normal oral and palatal mucosa present and tongue normal Teeth and gingiva: dentition normal and gingiva normal Throat: Yes posterior oropharynx normal, Yes tonsils normal and Yes uvula midline Eyes Conjunctivae: conjunctivae normal Sclerae: sclerae normal Pupils: Equal, round and reactive pupils present EOM: EOMs intact bilaterally Direct Ophthalmoscopy: No no photophobia Neck Neck: Yes no lymphadenopathy, No tender and Yes no JVD Thyroid: Thyroid normal Carotids: no bruits Chest Chest palpation & inspection: no tenderness Resp Effort & Inspection: normal respiratory effort, no audible wheezes, not labored and no stridor Auscultation: no crackles, no rales, no rhonchi and no wheezes Cardio Jugular venous distension: no JVD Rate: regular rate, not bradycardic and not tachycardic Rhythm: regular rhythm Bruits: no carotid bruits Peripheral pulses: Peripheral pulses 2+ throughout GI Inspection: Yes normal to inspection, No abdominal wall ecchymosis and No visible herniation Palpation (GI): Soft to palpation, nontender, no guarding, not rigid and No hepatosplenomegaly present Auscultation: normoactive bowel sounds General: Yes no CVA tenderness Back/Spine/Pelvis Back: no CVA tenderness and No back tenderness Cervical Spine: cervical ROM normal Thoracic/Lumbar Spine: thoracic and lumbar spine normal to inspection, straight leg raise negative bilaterally, No thoraco-lumbar ROM limited and No lumbar spinal tenderness Skin Lesions: no lesions Rashes: no rashes Wounds: no wounds Neuro General: oriented to person, oriented to place, patient oriented x3, CN's II-XI intact bilaterally and No confusion Cranial nerves: Yes Equal, round and reactive pupils present and Yes Normal accommodation reflex present Cognition (Neuro): normal cognition Speech: No Abnormal speech present Gait exam (Neuro): Normal gait present Motor exam (neuro): 5/5 motor strength present throughout Extrem Right upper extremity: full ROM; no cyanosis Left upper extremity: full ROM; no cyanosis Right lower extremity: no edema Left lower extremity: no edema Psych Appearance: grossly normal Mental Status: mental status grossly normal Affect: normal affect Attitude: cooperative Thought process: Normal thought process present Results AMB Hemoglobin A1c AMB Hemoglobin A1c 7.2 % Last Edit by KYLE Epps on 02/14/24 14:59 Results Reviewed Results Reviewed: Laboratory Last Values Hgb A1c (Clinic) 7.2 % (4.0-6.0) H 02/14/24 14:59 Assessment and Plan Assessment & Plan (1) Annual physical exam: Code(s): Z00.00 - Encounter for general adult medical examination without abnormal findings (2) Diabetes type 2, controlled: Code(s): E11.9 - Type 2 diabetes mellitus without complications Qualifiers: Diabetes mellitus complication status: without complication Diabetes mellitus termite helper insulin use: without senior living use Qualified Code(s): E11.9 - Type 2 diabetes mellitus without complications Plan: Patient's type 2 diabetes suboptimally controlled with A1c is 7.2. Has not been able to find Ozempic from pharmacy due to high demand. He is willing to restart metformin. Goal A1c is to remain below 7.0 (3) Obese: Code(s): E66.9 - Obesity, unspecified Qualifiers: Body mass index: BMI 40.0-44.9 Obesity classification: adult class 3 (BMI >= 40) Obesity type: due to excess calories Serious obesity comorbidity presence: with serious comorbidity Qualified Code(s): E66.01 - Morbid (severe) obesity due to excess calories; Z68.41 - Body mass index [BMI] 40.0-44.9, adult Plan: Patient does understand his BMI is over 40 will try to work on being more physically active and adapt to better eating habits to reduce his weight. (4) HLD (hyperlipidemia): Code(s): E78.5 - Hyperlipidemia, unspecified Qualifiers: Hyperlipidemia type: mixed hyperlipidemia Qualified Code(s): E78.2 - Mixed hyperlipidemia Plan: Patient's cholesterol slightly elevated for his cardiovascular risk. Offered him statin therapy though he declines will like to work on dietary modifications. Goal LDL to be below 100 (5) Tendonitis, Achilles: Code(s): M76.60 - Achilles tendinitis, unspecified leg Qualifiers: Laterality: bilateral Qualified Code(s): M76.61 - Achilles tendinitis, right leg; M76.62 - Achilles tendinitis, left leg Plan: As per HPI patient continues to have bilateral Achilles tendon tendinitis. 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 Has had been using heel shoe inserts which have been helpful. He has been wearing new footwear which has been helpful in reducing his tendinitis. He reports trying a new low inflammatory diet Orders: Orders AMB Hemoglobin A1c 02/14/24 E11.9 - Type 2 diabetes mellitus without complications Prostate Specific Antigen Scr 02/14/24 E11.9 - Type 2 diabetes mellitus without complications, Z12.5 - Encounter for screening for malignant neoplasm of prostate Medications: New metformin ER 500 mg PO DAILY 90 tabs 1RF 90 days E11.9 - Type 2 diabetes mellitus without complications Discontinued semaglutide (Ozempic) Discontinued Reason: Duplicate 1 mg (0.75 mL) subcut QWEEK 4 weeks 3 mL 3RF E11.9 - Type 2 diabetes mellitus without complications Patient Instructions: Goal: A1c to be below 7.0 Barriers: Adherence to physical activity and healthy eating habits Coding Level of Care Code Est Pt Prev Care 40-64y(42902) Diagnoses Annual physical exam Z00.00 Controlled type 2 diabetes mellitus without complication, without long-term current use of insulin E11.9 Diabetes mellitus complication status: without complication Diabetes mellitus senior living insulin use: without termite helper use Class 3 severe obesity due to excess calories with serious comorbidity and body mass index (BMI) of 40.0 to 44.9 in adult E66.01; Z68.41 Body mass index: BMI 40.0-44.9 Obesity classification: adult class 3 (BMI >= 40) Obesity type: due to excess calories Serious obesity comorbidity presence: with serious comorbidity Mixed hyperlipidemia E78.2 Hyperlipidemia type: mixed hyperlipidemia Achilles tendinitis of both lower extremities M76.61; M76.62 Laterality: bilateral
[2024-02-14 14:45] VITALS: BP 142/80; PULSE 78; O2SAT 98; BMI 41.7
== END 2024-02-14 15:41 | disposition home or self-care (01) ==
PROVIDERS: PCP Physician Assistant; Visit Provider Physician Assistant
DX: E11.9 Type 2 diabetes mellitus without complications (principal)
CPT/HCPCS: 83036; 99396

== ENCOUNTER 2024-06-26 12:47 | Outpatient (REF) | payer BC, SELFPAY ==
--- NOTE | ~2024-06-26 | US_ITS ---
EXAMINATION: US SCROTUM CLINICAL INFORMATION: Bilateral hydroceles, scrotal mass. COMPARISON: Scrotal ultrasound 04/11/2023. TECHNIQUE: A sonogram of the scrotum was performed assessing gregory-scale appearance and color Doppler flow. Spectral Doppler analysis of the arterial and venous flow were performed in the testes bilaterally. FINDINGS: RIGHT: Right testicle measures 5.3 x 2 x 3.2 cm, volume 18 mL. Punctate scattered echogenic foci suggestive of microlithiasis. Spectral Doppler analysis of the arterial and venous flow is normal in the right testis. Again noted asymmetrically enlarged right epididymis however without significant associated hypervascularity, possibly secondary to tubular ectasia of the epididymis. New since prior, there is a complex focal masslike abnormality with associated vascularity in the epididymal tail measuring 1.8 x 1.2 x 1.5 cm. There is a simple appearing epididymal head cyst measuring 0.4 cm. Slightly increased complicated hydrocele with floating debris. No varicocele. LEFT: Left testicle measures 4.5 x 2.4 x 3.4 cm, volume 19 mL. Punctate scattered echogenic foci suggestive of microlithiasis. Spectral Doppler analysis of the arterial and venous flow is normal in the left testis. Left epididymal head is normal in size. Simple appearing epididymal head cyst measuring 0.3 cm. Simple appearing small hydrocele. No varicocele. Left epididymal Doppler flow is normal. US/US scrotum IMPRESSION: 1. New 1.8 cm complex masslike abnormality in the right epididymal tail with associated vascularity. Findings may be infectious, inflammatory or malignant. Recommend clinical correlation and further characterization with MRI with and without intravenous contrast as warranted. 2. Complicated right-sided hydrocele with debris, slightly increased since prior. 3. Again noted is asymmetric enlargement of the right epididymis however without significant associated hypervascularity, possibly secondary to tubular ectasia of the epididymis. 4. Punctate echogenic foci in both testicles suggestive of microlithiasis. No intratesticular mass. Electronically signed by: Karie Parra MD 06/26/2024 03:39 PM EDT
== END 2024-06-26 12:48 | disposition home or self-care (01) ==
LOC: HO.HMGCX 12:47
PROVIDERS: PCP Physician Assistant; Visit Provider Physician Assistant
DX: N43.3 Hydrocele, unspecified (principal); N50.89 Other specified disorders of the male genital organs
CPT/HCPCS: 76870

== ENCOUNTER → 2024-07-05 10:29 | Outpatient (BNV) | payer BC, SELFPAY | PROVIDERS: PCP Physician Assistant; Visit Provider Radiology Diagnostic Radiology | DX: N50.3 Cyst of epididymis (principal) | CPT/HCPCS: 72195 ==

== ENCOUNTER 2024-07-05 10:31 | Outpatient (REF) | payer BC, SELFPAY ==
--- NOTE | ~2024-07-05 | MR_ITS ---
EXAMINATION: MR PELVIS WITH CONTRAST CLINICAL INFORMATION: 1.8 cm complex masslike abnormality, right epididymis. COMPARISON: Correlated to ultrasound of the scrotum dated June 26, 2024. TECHNIQUE: Multiplanar, sequence MRI pelvis/scrotum sac without the IV contrast administration. FINDINGS: Submitted for interpretation on August 23, 2024. Limited examination due to lack of IV contrast. There is a 1.9 cm heterogeneous mixed signal contrast there is a thick lesion centered in the tail of the right epididymis with intrinsic hyperintense T1 signal on the fat sat T1 sequence and focal areas of no signal in all sequences. The right testicle measures 4 x 3 x 2 cm with an elongated morphology. The left testicle measures 4 x 3 x 3 cm with an ovoid shaped. Hydrocele, moderate volume on the left and small to moderate volume on the right scrotal sac. Prominent pampiniform plexus. MR/MR pelvis wo con IMPRESSION: Limited examination demonstrated a focal 1.9 cm partially calcified and questionable hemorrhagic component lesion at the tail of the right epididymis. Bilateral hydrocele, moderate volume on the left hand small to moderate volume on the right. Probable varicocele, bilaterally. Electronically signed by: Yury Bowers MD 08/23/2024 12:36 PM EST
== END 2024-07-05 10:32 | disposition home or self-care (01) ==
LOC: HO.MRI 10:31
PROVIDERS: PCP Physician Assistant; Visit Provider Physician Assistant
DX: N50.89 Other specified disorders of the male genital organs (principal)
CPT/HCPCS: 72195; 72197

== ENCOUNTER 2024-08-15 08:34 | Outpatient (AMB) | payer BC, SELFPAY ==
--- NOTE | 2024-08-15 08:47 | MHC.OFFVIS ---
Intake Visit Reasons: scrotal mass Intake Note: Patient presents today for follow up on: Scrotal Mass Ultrasound Completed: 06/26/24 MRI Completed: 07/05/24 Urology Medications: none Blood Thinner: none Siebel Crm Developer Required: No Cocoa Bean Roaster Helper: Cocoa Bean Roaster Helper offered & declined Accompanied by: Self / Same As Patient Allergies peach [[place]] Allergy (Intermediate, Verified 08/15/24 09:58) SCRATCHY EARS AND BACK OF THROAT apple [Apple] Allergy (Unknown, Verified 08/15/24 09:58) SCRATCHY EARS, BACK OF THROAT Medication List - Last Reconciled 08/15/24 by ELIJAH Tillman-BC [Diabetic foot inserts As directed] metformin ER 500 mg PO DAILY 90 days HPI Comments Details: Albaro is very pleasant 48-year-old male patient of Dr. Rodriguez was accompanied by his significant other at today's office visit. He has a past medical history of Achilles tendinitis, hyperlipidemia, diabetes type 2, and gout. He presents to the office today for a follow up of his scrotal/testicular discomfort. Of note, patient was seen approximately 1 year ago as a new patient for scrotal/testicular discomfort he had been experiencing at which time he reported symptoms had self resolved and would call if symptoms reoccurred. He reports having followed up with his PCP as he noted right-sided lump and was unsure if this was related to previous vasectomy at which time a scrotal ultrasound was ordered for further assessment. These results were reviewed with the patient today. 1.8 complex masslike abnormality in the right epididymal tail with associated vascularity. Recommendations for MRI with and without contrast was recommended. He has had the MRI ordered by his PCP however it remains pending at this time. In assessment of the patient today no masslike structure palpated however patient does have significant right-sided epididymal head tenderness. He also has small bilateral hydroceles. He reports swelling and lump he had been experiencing has since subsided over the last 4 weeks. He does have a previous history of a vasectomy many years ago. He otherwise denies any bothersome urinary issues. We discussed surveillance monitoring as well as treatment for potential epididymitis given exam findings today however patient discusses he feels symptoms have improved and will continue with surveillance monitoring at this time. When asked he denies urinary urgency, urinary frequency, incontinence, nocturia, hematuria, dysuria, foul smelling urine, changes to urinary stream, flank pain, fever, and or chills. He is happy with his current voiding parameters. Discussed at length potential causes for scrotal/testicular discomfort patient had been experiencing. Discussed seeking medical treatment if symptoms reoccur and or pain is associated with nausea and vomiting. He otherwise denies any other issues or concerns at this time. [facility] Surgical History History of shoulder surgery Family History Father HIV (human immunodeficiency virus infection) Cirrhosis Substance use disorder Mental health disorder Mother Diabetes Maternal Grandmother Diabetes Hypertension Maternal Aunt Stomach cancer Maternal Aunt Breast cancer Maternal Grandmother Ovarian cancer Social History Housing: House Alcohol intake: current Alcohol intake frequency: holidays/special occasions only Patient Tobacco Use Status: Tobacco use Unknown (Patient has a cigar once in a while) Tobacco use type: Cigar e-Cigarette/Vaping Use: Never Used Substance Use Type: Marijuana service: No Current occupational status: employed 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[employer] Cognitive needs: No Hearing needs: No Vision needs: Yes Review of Systems Const Reports no additional complaints Eyes Reports no additional complaints ENT Reports no additional complaints Card Reports as per HPI Resp Reports no additional complaints GI Reports no additional complaints Reports as per HPI Musc Reports as per HPI Neuro Reports no additional complaints Psych Reports no additional complaints Endo Reports as per HPI Ori/Lymph Reports no additional complaints Aller/Immun Reports no additional complaints Physical Exam Const General: cooperative, healthy appearing, comfortable, no acute distress, well developed, alert and awake Nutritional Appearance: overweight Orientation/consciousness: patient oriented x3 Limitations: no limitations HEENT Head: Yes normal to inspection, Yes normocephalic and Yes atraumatic Ears: hearing grossly normal bilaterally Eyes General: appearance normal, both eyes and all related structures Neck Neck: Yes normal visual inspection and Yes trachea midline Chest Chest palpation & inspection: normal inspection of the chest Resp Effort & Inspection: normal respiratory effort and able to speak in complete sentences Cardio Rate: regular rate GI Inspection: Yes normal to inspection General: Yes no CVA tenderness Back/Spine/Pelvis Back: no CVA tenderness Skin General skin exam: no rashes or lesions noted Neuro General: patient oriented x3 Extrem General: Yes normal to inspection Psych Appearance: grossly normal and well kempt Mental Status: mental status grossly normal Speech and movement: Normal speech and movement present and Clear speech present Affect: normal affect Attitude: cooperative Thought process: Normal thought process present Thought content: Normal thought content present Insight: Fair insight present (Psych) Judgement: Fair judgement present (Psych) Results AMB Urinalysis, Automated UA Leukoctes 0 Dave/uL Last Edit by Praful Garza on 08/15/24 08:58 UA Nitrite Last Edit by Synkergregg Garza on 08/15/24 08:58 UA Urobilinogen 0.2 mg/dL Last Edit by Boufreina Men Rockjennifer on 08/15/24 08:58 UA Protein 15 mg/dL Last Edit by Boufreina Men Rockjennifer on 08/15/24 08:58 UA pH 6.0 Last Edit by Synkergregg Garza on 08/15/24 08:58 UA Blood 0 Carlyle/uL Last Edit by Boufreina Men Rockjennifer on 08/15/24 08:58 UA Specific [place] 1.020 Last Edit by Boufreina Men Rockjennifer on 08/15/24 08:58 UA Ketone Last Edit by Boufreina Men Rockjennifer on 08/15/24 08:58 UA Bilirubin 0 mg/dL Last Edit by Boufreina Men Rockjennifer on 08/15/24 08:58 UA Glucose 0 mg/dL Last Edit by Boufreina Garza on 08/15/24 08:58 Results Reviewed Results Reviewed: Laboratory Last Values Urine pH (Auto) 6.0 08/15/24 08:57 Specific [place] (Auto) 1.020 08/15/24 08:57 Urine Protein (Auto) 15 mg/dL 08/15/24 08:57 Glucose (UA)(Auto) 0 mg/dL 08/15/24 08:57 Urine Blood (Auto) 0 Carlyle/uL 08/15/24 08:57 Urine Bilirubin (Auto) 0 mg/dL 08/15/24 08:57 Urine Urobilinogen (Auto) 0.2 mg/dL 08/15/24 08:57 Leukocyte Esterase (Auto) 0 Dave/uL 08/15/24 08:57 Date of Service: 06/26/24 EXAMINATION: US SCROTUM FINDINGS: RIGHT: Right testicle measures 5.3 x 2 x 3.2 cm, volume 18 mL. Punctate scattered echogenic foci suggestive of microlithiasis. Spectral Doppler analysis of the arterial and venous flow is normal in the right testis. Again noted asymmetrically enlarged right epididymis however without significant associated hypervascularity, possibly secondary to tubular ectasia of the epididymis. New since prior, there is a complex focal masslike abnormality with associated vascularity in the epididymal tail measuring 1.8 x 1.2 x 1.5 cm. There is a simple appearing epididymal head cyst measuring 0.4 cm. Slightly increased complicated hydrocele with floating debris. No varicocele. LEFT: Left testicle measures 4.5 x 2.4 x 3.4 cm, volume 19 mL. Punctate scattered echogenic foci suggestive of microlithiasis. Spectral Doppler analysis of the arterial and venous flow is normal in the left testis. Left epididymal head is normal in size. Simple appearing epididymal head cyst measuring 0.3 cm. Simple appearing small hydrocele. No varicocele. Left epididymal Doppler flow is normal. IMPRESSION: 1. New 1.8 cm complex masslike abnormality in the right epididymal tail with associated vascularity. Findings may be infectious, inflammatory or malignant. Recommend clinical correlation and further characterization with MRI with and without intravenous contrast as warranted. 2. Complicated right-sided hydrocele with debris, slightly increased since prior. 3. Again noted is asymmetric enlargement of the right epididymis however without significant associated hypervascularity, possibly secondary to tubular ectasia of the epididymis. 4. Punctate echogenic foci in both testicles suggestive of microlithiasis. No intratesticular mass. Assessment & Plan Assessment & Plan (1) Bilateral hydrocele: Code(s): N43.3 - Hydrocele, unspecified Category: Medical (2) Epididymal pain: Code(s): N50.819 - Testicular pain, unspecified Category: Medical Plan In office urinalysis results reviewed with the patient today; as noted above. We discussed exam findings of potential right-sided epididymitis and further treatment options to include doxycycline however patient feels symptoms have improved and would like to continue with surveillance monitoring. MRI remains pending. Recent scrotal ultrasound results reviewed with the patient today; as noted above. We discussed importance of wearing supportive underwear. Patient otherwise denies any bothersome urinary issues. He reports be happy with current voiding parameters. We discussed worsening symptoms Will obtain repeat scrotal ultrasound in 3 months. Follow-up in 3 months with imaging to be completed prior; or sooner with any issues, concerns, and or questions. Orders: Orders US scrotum Today N43.3 - Hydrocele, unspecified AMB Urinalysis Automated Today Z13.9 - Encounter for screening, unspecified Patient Instructions: The patient had an opportunity to ask questions regarding the treatment plan. All questions were answered. Physical exam, labs, and imaging were discussed and reviewed in detail. As well as risks, benefits, and discussion of treatment choices. No major barriers to understanding were identified. The patient expressed understanding and agreement with the above treatment plan. The patient was made aware they should contact our office by phone for worsening of their current condition, the appearance of new symptoms, or with any questions or concerns. Compliance is encouraged with any medications and follow up testing that is ordered. It is a privilege to be allowed the opportunity to participate in? your urological care.? Again, if you have any questions or concerns If you have any questions or concerns please do not hesitate to contact me. The office is [phone]. This note is constructed using voice recognition software. While every effort has been made to ensure accuracy assistant to the president errors may have been included. Yours sincerely, RAVINDRA Tillman Coding Level of Care Code Est Pt Level 3 (90754) Diagnoses Bilateral hydrocele N43.3 Epididymal pain N50.819
== END 2024-08-15 09:27 | disposition home or self-care (01) ==
PROVIDERS: PCP Physician Assistant; Visit Provider Nurse Practitioner Family
DX: N43.3 Hydrocele, unspecified (principal); N50.819 Testicular pain, unspecified; Z13.9 Encounter for screening, unspecified
CPT/HCPCS: 99213

== ENCOUNTER → 2024-08-15 08:34 | Outpatient (BNVA) | payer BC, SELFPAY | PROVIDERS: PCP Physician Assistant; Visit Provider Nurse Practitioner Family | DX: N50.819 Testicular pain, unspecified (principal); N43.3 Hydrocele, unspecified | CPT/HCPCS: 81003 ==

== ENCOUNTER 2024-08-20 14:52 | Outpatient (AMB) | payer BC, SELFPAY ==
[2024-08-20 15:07] VITALS: BP 128/78; PULSE 73; O2SAT 96; BMI 39.3
--- NOTE | 2024-08-20 15:07 | MHC.PC.OV ---
Vital Signs 08/20/24 15:07 Height 5 ft 7 in Weight 251 lb 2 oz BMI 39.3 BP 128/78 Blood Pressure Location Lt brachial Position Sitting Pulse 73 Pulse Source Pulse Oximeter Pulse Oximetry (%) 96 Oxygen Delivery Method Room Air Intake Visit Reasons: f/u DMII Conventions Reservationist Required: No Accompanied by: Self / Same As Patient Allergies peach [[place]] Allergy (Intermediate, Verified 08/20/24 15:11) SCRATCHY EARS AND BACK OF THROAT apple [Apple] Allergy (Unknown, Verified 08/20/24 15:11) SCRATCHY EARS, BACK OF THROAT Medication List - Last Reconciled 08/20/24 by Contreras Rodriguez PA-C [Diabetic foot inserts As directed] metformin ER 500 mg PO DAILY 90 days Tobacco use date assessed: 10/11/23 Dental Screening Dental Screen Date: 10/11/23 HPI f/u DMII HPI Details Patient is a 48-year-old male here for follow-up visit ?Patient has a past medical history significant for obesity, type 2 diabetes, gout. Recently had some scrotal pain was sent for an ultrasound noted a scrotal mass. Has been referred to Urology. Did get a pelvic MRI that is pending read out. Unfortunately he reports scrotal mass is now smaller and less painful. .. Chronic Achilles tendinitis: Followed by Podiatry, has done physical therapy and tried anti-inflammatory medications without much relief. Has now has new shoe inserts which are somewhat helpful. ? He wants to be more physically active though his hindered by his bilateral foot pain and swelling on upon physical activity. He reports his Achilles and ankle pain has been much better .. Obesity: Patient does understand his BMI is over 40 will continue working on physical activity and healthy eating habits. .. DMII:? Has made changes in his diet in his physical activity. Today's A1c of 5.5 continues on metformin 500 daily. He reports doing a carnivore diet which has been helpful. .. Hyperlipidemia:? Have noted elevated total cholesterol and LDL.? We did discuss perhaps starting cholesterol medication though would like to hold off and work on lifestyle management of his cholesterol at this time. [facility] Surgical History History of shoulder surgery Family History Father HIV (human immunodeficiency virus infection) Cirrhosis Substance use disorder Mental health disorder Mother Diabetes Maternal Grandmother Diabetes Hypertension Maternal Aunt Stomach cancer Maternal Aunt Breast cancer Maternal Grandmother Ovarian cancer Social History Housing: House Alcohol intake: current Alcohol intake frequency: holidays/special occasions only Patient Tobacco Use Status: Tobacco use Unknown (Patient has a cigar once in a while) Tobacco use type: Cigar e-Cigarette/Vaping Use: Never Used Substance Use Type: Marijuana service: No Current occupational status: employed 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 How many drinks containing alcohol do you have on a typical day when you are drinking?: 1 or 2 3. How often do you have six or more drinks on one occasion?: Never Total Score: 0 FRANCIS-7 AMB Questionnaire FRANCIS-7 Date FRANCIS - 7 assessed: 10/11/23 Source: Developed by Drs. Augusto Laboy, Crystal Shukla, Ricky Zamorano and colleagues, with an educational ankit from [employer]. Review of Systems Const Denies headache(s) Eyes Denies loss of vision ENT Denies vertigo, Denies dizziness, Denies headache(s) and Denies sore throat Card Denies chest pain, Denies leg edema and Denies lightheadedness Resp Denies cough, Denies hemoptysis and Denies wheezing GI Denies abdominal pain, Denies melena, Denies constipation, Denies diarrhea and Denies vomiting Denies dysuria, Denies urinary frequency and Denies urinary urgency Musc Denies arthralgias, Denies joint swelling, Denies numbness and Denies tingling Neuro Denies Abnormal speech present, Denies behavioral changes, Denies vertigo, Denies dizziness, Denies headache(s), Denies loss of vision, Denies memory loss, Denies numbness and Denies tingling Psych Denies anxiety, Denies behavioral changes, Denies depression, Denies memory loss and Denies panic attacks Ori/Lymph Denies easy bleeding and Denies easy bruising Aller/Immun Denies wheezing Physical exam (Primary Care) Vital Signs: Last Vital Signs Pulse 73 08/20/24 15:07 BP 128/78 08/20/24 15:07 Pulse Ox 96 08/20/24 15:07 Oxygen Delivery Method Room Air 08/20/24 15:07 BMI result Body Mass Index 39.3 Tobacco/Smoking Status: Tobacco use Status Tobacco use date assessed 10/11/23 08/20/24 15:07 Patient Tobacco Use Status Tobacco use Unknown (Patient 08/20/24 15:07 has a cigar once in a while ) Tobacco use type Cigar 08/20/24 15:07 e-Cigarette/Vaping Use Never Used 08/20/24 15:07 Thrive Assessment: Date of Thrive Assessment Date Thrive assessed 10/11/23 08/20/24 15:07 Const General: healthy appearing, no acute distress, alert and awake Nutritional Appearance: well nourished Orientation/consciousness: oriented to person, oriented to place and oriented to time HENMT Ears: TM's normal bilaterally General nose exam: Normal nasal mucous membranes and turbinates present Eyes Conjunctivae: conjunctivae normal Sclerae: sclerae normal Pupils: Equal, round and reactive pupils present Neck Neck: Yes no lymphadenopathy and Yes no JVD Thyroid: Thyroid normal Carotids: no bruits Resp Effort & Inspection: normal respiratory effort and not tachypneic Auscultation: no crackles, no rales, no rhonchi and no wheezes Cardio Rate: regular rate Rhythm: regular rhythm Heart sounds: no murmurs and normal S1 and S2 GI Palpation (GI): Soft to palpation, nontender, no hepatomegaly and no splenomegaly Auscultation: normal bowel sounds Skin General skin exam: no rashes or lesions noted and dry skin Neuro General: oriented to person, oriented to place and oriented to time Cranial nerves: Yes Equal, round and reactive pupils present Speech: No Abnormal speech present Gait exam (Neuro): Normal gait present Motor exam (neuro): no tremor noted Extrem Right upper extremity: full ROM Left upper extremity: full ROM Right lower extremity: full ROM; no edema Left lower extremity: full ROM; no edema Psych Mental Status: mental status grossly normal Speech and movement: Normal speech and movement present Affect: normal affect Attitude: cooperative Thought process: Normal thought process present Office Procedures Flu Questionnaire Does the patient have a severe egg allergy?: No Results AMB Hemoglobin A1c AMB Hemoglobin A1c 5.5 % Last Edit by KYLE Epps on 08/20/24 15:17 Immunizations Fluarix Triv [id number] (PF) 45 mcg (15 mcg x 3)/0.5 mL IM syringe Performing Provider: Contreras Rodriguez PA-C [facility] [place] [facility] Documented (not given) by: KYLE Epps on 08/20/24 15:07 Reason Not Given: Patient Refused Coding Level of Care Code Est Pt Level 4 (31838) Diagnoses Controlled type 2 diabetes mellitus without complication, without long-term current use of insulin E11.9 Diabetes mellitus [facility] insulin use: without [facility] use Diabetes mellitus complication status: without complication Mixed hyperlipidemia E78.2 Hyperlipidemia type: mixed hyperlipidemia Achilles tendinitis of both lower extremities M76.61; M76.62 Laterality: bilateral Scrotal mass N50.89 Assessment & Plan Assessment & Plan (1) Diabetes type 2, controlled: Code(s): E11.9 - Type 2 diabetes mellitus without complications Category: Medical Qualifiers: Diabetes mellitus target man insulin use: without [facility] use Diabetes mellitus complication status: without complication Qualified Code(s): E11.9 - Type 2 diabetes mellitus without complications Plan: Patient's type 2 diabetes now well controlled. Continues on metformin 500 daily and has been working on dietary modifications. Goal A1c is to remain below 7.0 (2) HLD (hyperlipidemia): Code(s): E78.5 - Hyperlipidemia, unspecified Category: Medical Qualifiers: Hyperlipidemia type: mixed hyperlipidemia Qualified Code(s): E78.2 - Mixed hyperlipidemia Plan: Patient continues to work on lifestyle dietary modifications. He has been intermittently doing a carnivore diet anticipates his cholesterol being higher though has lost weight in his feeling better. (3) Tendonitis, Achilles: Code(s): M76.60 - Achilles tendinitis, unspecified leg Category: Medical Qualifiers: Laterality: bilateral Qualified Code(s): M76.61 - Achilles tendinitis, right leg; M76.62 - Achilles tendinitis, left leg Plan: He reports he continues with ankle pain and tendonitis, has been using 10s unit which has been helpful. (4) Scrotal mass: Code(s): N50.89 - Other specified disorders of the male genital organs Category: Medical Plan: Has followed up with Urology and reports his scrotal masses swallowing size and less painful. He has no ejaculation issues or urinary issues. Will be awaiting MRI pelvic MRI read out from Radiology. Orders: Orders Influenza [id number] Immunization Today Z23 - Encounter for immunization AMB Hemoglobin A1c Today E11.9 - Type 2 diabetes mellitus without complications Medications: Refilled metformin ER 500 mg PO DAILY 90 days 90 tabs 1RF E11.9 - Type 2 diabetes mellitus without complications
== END 2024-08-20 16:26 | disposition home or self-care (01) ==
PROVIDERS: PCP Physician Assistant; Visit Provider Physician Assistant
DX: E11.9 Type 2 diabetes mellitus without complications (principal); E78.2 Mixed hyperlipidemia; M76.61 Achilles tendinitis, right leg; M76.62 Achilles tendinitis, left leg; N50.89 Other specified disorders of the male genital organs; Z23 Encounter for immunization

== ENCOUNTER → 2024-08-20 14:52 | Outpatient (BNVA) | payer BC, SELFPAY | PROVIDERS: PCP Physician Assistant; Visit Provider Physician Assistant | DX: E11.9 Type 2 diabetes mellitus without complications (principal); E78.2 Mixed hyperlipidemia; M76.61 Achilles tendinitis, right leg; M76.62 Achilles tendinitis, left leg; N50.89 Other specified disorders of the male genital organs; Z79.84 Long term (current) use of oral hypoglycemic drugs; Z28.21 Immunization not carried out because of patient refusal | CPT/HCPCS: 83036; 90471 ==

== ENCOUNTER 2024-10-29 08:36 | Outpatient (REF) | payer BC, SELFPAY ==
--- NOTE | ~2024-10-29 | US_ITS ---
CLINICAL HISTORY: N43.3 - Hydrocele, unspecified US Scrotum with Doppler Comparison: 06/26/2024 Findings: Right testicle normal size and echotexture, 5.3 x 2.2 x 3.2 cm. Left testicle normal size and echotexture, 4.8 x 2.3 x 3.4 cm. Doppler color flow and arterial/venous spectral tracing of both testicles noted. The previous right epididymal tail mass is not visualized on today's study. Small bilateral hydrocele, mkjq-witbfbu-hjok-right. Small bilateral epididymal cyst, benign. Abnormal scrotal wall thickening. IMPRESSION: Testicular echotexture is within normal limits. Although there is demonstration of Doppler flow, this appears somewhat globally decreased versus the comparison study. Some of this may relate to changes in technique. There is no current torsion. This finding is nonspecific. Correlation with any testicular pain is recommended. The previously seen right epididymal tail mass is no longer present/visualized. Small bilateral hydroceles. Small benign epididymal cysts. Increased scrotal skin thickening. This document has been electronically signed by: Jan Dash MD on 10/29/2024 12:53:41
--- OUTSIDE RECORDS SUMMARY | 2024-10-29 08:49 | XMS_ITS ---
Author Organization [facility] Address [address] [place] [id number] Care Team Providers Care Objective C Developer Name Role Phone Contreras Rodriguez Primary Care Provider Unavailab Brenda Wu Unavailable [phone] REASON FOR VISIT cx 10/19 Encounters Encounter Location Date Provider Diagnosis [facility] [address] [place] [address] 09/22/2023 Brenda Perdomo Plan Of Treatment No Information Progress Notes * Albaro DE LA CRUZ EDOB:1975 (48 yo M)Acc No.[id number]:09/22/2023 Patient:?Albaro De La Cruz :1975???Age:48 Y???Sex:Male Address:[address] [place] [address], [id number] * true * Date:? Generated for Destinyi chanel/Christina/eTransmitting on:?10/29/2024 08:49 AM EST
--- OUTSIDE RECORDS SUMMARY | 2024-10-29 08:49 | XMS_ITS ---
Author Organization [facility] Address [address] [place] [id number] Care Team Providers Care Chemical Dependency Therapist Name Role Phone Contreras Rodriguez Primary Care Provider Unavailab Brenda Wu Unavailable [phone] Encounters Encounter Location Date Provider Diagnosis [facility] [address] [place] [address] 10/19/2023 Brenda Perdomo Plan Of Treatment No Information Progress Notes * Albaro DE LA CRUZ EDOB:1975 (49 yo M)Acc No.[id number]:10/19/2023 Progress Note Patient:?Albaro DE LA CRUZ Provider:?Brenda Perdomo DPM :1975???Age:48 Y???Sex:Male Gigi e:10/19/2023 Address:[address] [place], [place] [id number] Pcp:Contreras Rodriguez Subjective: * Chief Complaints: * ??? * Medical History:? Objective: * Vitals:? Assessment: Plan: * Treatment: * Images: * The named appointment provid er may or may not be the originator of this progress note, and it is not deemed complete until electronically signed by the appointment provider. Sign off status: Pending * Provider:?Brenda Perdomo DPM Date:? Generated for Destinyi chanel/Christina/eTransmitting on:?10/29/2024 08:49 AM EST
--- OUTSIDE RECORDS SUMMARY | 2024-10-29 08:49 | XMS_ITS | Patient Health Record ---
Author Organization [facility] Address [address] [place] [address] Care Team Providers Care Analysis Director Name Role Phone Contreras Rodriguez Primary Care Provider Unavailab kelley Perdomo Brenda Unavailable [phone] Allergies No Known Allergies Reason For Referral No Information Medications Medication SIG (Take, Route, Frequency, Duration) Notes Start Date End Date Status Extra Depth Orthopedic Shoes (1 Pair) with Customized Heat Molded Multidensity Innersoles (3 Pair) as directed Dx: NIDDM (E11.9), Hammertoe Foot Deformity (M20.41,M20.42), Preulcerative Skin Lesion(s) (L85.1) 01/29/2022 Active Custom Orthotics as directed 01/29/2022 Active Ciclopirox Olamine 0.77 % 1 application to affected area Externally to feet Twice a day for 30 days Active Physical Therapy . . . 2-3x/week for 3- 4 weeks 01/29/2022 Active Night Splint AFO - L1930 as directed 11/11/2015 Not-Taking Physical Therapy . . . 2-3x/week for 3- 4 weeks 12/09/2015 Not-Taking Feldene 20 MG 1 capsule with food Orally Once a day for 30 day(s) Active zzzExtra Depth Orthopedic Shoes (1 Pair) with Customized Heat Molded Multidensity Innersoles (3 Pair) . . . Dx: NIDDM (E11.9), Hammertoe Foot Deformity (M20.41,M20.42), Preulcerative Skin Lesion(s) (L85.1) for . 11/11/2015 Not-Taki ng metFORMIN HCl 500 MG 1 tablet with meals Orally Twice a day Active Lisinopril 5 MG 1 tablet Orally Once a day for 30 day(s) Not-Taking Allopurinol 300 MG 1 tablet Orally Once a day for 30 day(s) Active Immunizations Vaccine Route Administration Date Status Comme nts COVID-19 Moderna Vaccine Unknown 02/12/2021 Administered First Dose: 12/19 Social History Tobacco Use: Social History Observation Description Date Details (start date - stop date) Never Smoker NA - NA Tobacco Use/Smoking Question Answer Notes Are you a: nonsmoker Alcohol Screen Question Answer Notes Did you have a drink containing alcohol in the p ast year? No Points 0 Interpretation Negative Tobacco use other than smoking: Question Answer Notes Are you an other tobacco user? Yes C igars Occasionally Problems Problem Type SNOMED Code ICD Code Onset Dates Problem Status W/U Status Risk Notes Problem Plantar fascial fibromatosis (44385255) Plantar fascial fibromatosis (M72.2) Active confirmed Problem Type II diabetes mellitus without complication (039952340) Type 2 diabetes mellitus without complications (E11.9) Active confirmed Problem 153012151 Hammer toe of left foot (M20.42) Active confirmed Problem 87249079 Chronic gout of foot, unspecified cause, unspecified laterality (M1A.0790) Active confirmed Plan Of Treatment Pending Test Test Name Order Date Hemoglobin A1c 11/11/2015 Insurance Providers Payer Name Payer Address Payer Phone Subscriber Number Group Number Insured Name Patient Relationship to Insured Coverage Start Date Coverage End Date [facility] [address] [place] [address] [phone] [id number] Albaro Corona Self - patient is the insured Medical (General) History Medical History History ICD Code type II diabetes hypertension Gout Sciatica Surgical History Surgery Date(Month/Year) R shoulder surgery 06/2011
== END 2024-10-29 08:37 | disposition home or self-care (01) ==
LOC: HO.HMGCX 08:36
PROVIDERS: PCP Physician Assistant; Visit Provider Nurse Practitioner Family
DX: N43.3 Hydrocele, unspecified (principal)
CPT/HCPCS: 76870

== ENCOUNTER → 2024-10-29 08:37 | Outpatient (BNV) | payer BC, SELFPAY | PROVIDERS: PCP Physician Assistant; Visit Provider Radiology Vascular & Interventional Radiology | DX: N43.3 Hydrocele, unspecified (principal) | CPT/HCPCS: 76870; 93976 ==

== ENCOUNTER 2024-11-14 08:46 | Outpatient (AMB) | payer BC, SELFPAY ==
--- NOTE | 2024-11-14 08:51 | A.OFFVIS_ITS ---
Intake Visit Reasons: 3m Us(set) Intake Note: Patient presents today for follow up on: Scrotal Mass Ultrasound Completed: 10/29/24 Urology Medications: none Blood Thinner: none Production Control Technologist Required: No Carrier Washer: Carrier Washer offered & declined Accompanied by: Self / Same As Patient Allergies peach [Uvalde] Allergy (Intermediate, Verified 11/14/24 09:13) SCRATCHY EARS AND BACK OF THROAT apple [Apple] Allergy (Unknown, Verified 11/14/24 09:13) SCRATCHY EARS, BACK OF THROAT Medication List - Last Reconciled 11/14/24 by RAVINDRA Tillman [Diabetic foot inserts As directed] metformin ER 500 mg PO DAILY 90 days HPI Comments Details: Albaro is very pleasant 49-year-old male patient of Dr. Rodriguez. He has a past medical history of Achilles tendinitis, hyperlipidemia, diabetes type 2, and gout. He presents to the office today for a follow up of his scrotal/testicular discomfort. In discussion with the patient today he reports to be doing and feeling well. Patient reports since his last office visit here approximately 3 months ago he has had no bothersome scrotal discomfort and or pain. Recent scrotal imaging results reviewed with the patient today. 11/13 testicular echotexture is within normal limits. Although there is a demonstration of Doppler flow this appears somewhat globally decreased verses the comparison study. Some of this could be potentially related to changes in technique. There is no current torsion. This finding is nonspecific. Correlation with any testicular pain is recommended. The previously seen right epididymal tail masses no longer present and or visualized. Small bilateral hydroceles. Small benign epididymal head cysts. Increased scrotal skin thickening. He reports having utilized more supportive underwear and feels this has been significantly helpful. He currently denies any testicular discomfort and or pain. He does have a previous history of a vasectomy many years ago. He otherwise denies any bothersome urinary issues. When asked he denies urinary urgency, urinary frequency, incontinence, nocturia, hematuria, dysuria, foul smelling urine, changes to urinary stream, flank pain, fever, and or chills. He is happy with his current voiding parameters. Discussed at length potential causes for scrotal/testicular discomfort patient had been experiencing. Discussed seeking medical treatment if symptoms reoccur and or pain is associated with nausea and vomiting. He otherwise denies any other issues or concerns at this time. [facility] Surgical History History of shoulder surgery Family History Father HIV (human immunodeficiency virus infection) Cirrhosis Substance use disorder Mental health disorder Mother Diabetes Maternal Grandmother Diabetes Hypertension Maternal Aunt Stomach cancer Maternal Aunt Breast cancer Maternal Grandmother Ovarian cancer Social History Housing: House Alcohol intake: current Alcohol intake frequency: holidays/special occasions only Patient Tobacco Use Status: Tobacco use Unknown (Patient has a cigar once in a while) Tobacco use type: Cigar e-Cigarette/Vaping Use: Never Used Substance Use Type: Marijuana service: No Current occupational status: employed 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[employer] Cognitive needs: No Hearing needs: No Vision needs: Yes Review of Systems Const Reports no additional complaints Eyes Reports no additional complaints ENT Reports no additional complaints Card Reports as per HPI Resp Reports no additional complaints GI Reports no additional complaints Reports as per HPI Musc Reports as per HPI Neuro Reports no additional complaints Psych Reports no additional complaints Endo Reports as per HPI Ori/Lymph Reports no additional complaints Aller/Immun Reports no additional complaints Physical Exam Const General: cooperative, healthy appearing, comfortable, no acute distress, well developed, alert and awake Nutritional Appearance: overweight Orientation/consciousness: patient oriented x3 Limitations: no limitations HEENT Head: Yes normal to inspection, Yes normocephalic and Yes atraumatic Ears: hearing grossly normal bilaterally Eyes General: appearance normal, both eyes and all related structures Neck Neck: Yes normal visual inspection and Yes trachea midline Chest Chest palpation & inspection: normal inspection of the chest Resp Effort & Inspection: normal respiratory effort and able to speak in complete sentences Cardio Rate: regular rate GI Inspection: Yes normal to inspection General: Yes no CVA tenderness Back/Spine/Pelvis Back: no CVA tenderness Skin General skin exam: no rashes or lesions noted Neuro General: patient oriented x3 Extrem General: Yes normal to inspection Psych Appearance: grossly normal and well kempt Mental Status: mental status grossly normal Speech and movement: Normal speech and movement present and Clear speech present Affect: normal affect Attitude: cooperative Thought process: Normal thought process present Thought content: Normal thought content present Insight: Fair insight present (Psych) Judgement: Fair judgement present (Psych) Results AMB Urinalysis, Automated UA Leukoctes 0 Dave/uL Last Edit by Mallika Cole on 11/14/24 09:00 UA Nitrite Negative Last Edit by Mallika Cole on 11/14/24 09:00 UA Urobilinogen 0.2 mg/dL Last Edit by Mallika Cole on 11/14/24 09:00 UA Protein 0 mg/dL Last Edit by Mallika Cole on 11/14/24 09:00 UA pH 6.0 Last Edit by Mallika Cole on 11/14/24 09:00 UA Blood 0 Carlyle/uL Last Edit by Mallika Cole on 11/14/24 09:00 UA Specific Pendleton 1.015 Last Edit by Mallika Cole on 11/14/24 09:00 UA Ketone Negative Last Edit by Mallika Cole on 11/14/24 09:00 UA Bilirubin 0 mg/dL Last Edit by Mallika Cole on 11/14/24 09:00 UA Glucose 0 mg/dL Last Edit by Mallika Cole on 11/14/24 09:00 Results Reviewed Results Reviewed: Laboratory Last Values Urine pH (Auto) 6.0 11/14/24 08:54 Specific Pendleton (Auto) 1.015 11/14/24 08:54 Urine Protein (Auto) 0 mg/dL 11/14/24 08:54 Glucose (UA)(Auto) 0 mg/dL 11/14/24 08:54 Urine Ketones (Auto) Negative 11/14/24 08:54 Urine Blood (Auto) 0 Carlyle/uL 11/14/24 08:54 Urine Nitrite (Auto) Negative 11/14/24 08:54 Urine Bilirubin (Auto) 0 mg/dL 11/14/24 08:54 Urine Urobilinogen (Auto) 0.2 mg/dL 11/14/24 08:54 Leukocyte Esterase (Auto) 0 Dave/uL 11/14/24 08:54 Ordering Physician: Danielle CrP- Date of Service: 10/29/24 US Scrotum with Doppler Comparison: 06/26/2024 Findings: Right testicle normal size and echotexture, 5.3 x 2.2 x 3.2 cm. Left testicle normal size and echotexture, 4.8 x 2.3 x 3.4 cm. Doppler color flow and arterial/venous spectral tracing of both testicles noted. The previous right epididymal tail mass is not visualized on today's study. Small bilateral hydrocele, cdsm-rdjjigb-einm-right. Small bilateral epididymal cyst, benign. Abnormal scrotal wall thickening. IMPRESSION: Testicular echotexture is within normal limits. Although there is demonstration of Doppler flow, this appears somewhat globally decreased versus the comparison study. Some of this may relate to changes in technique. There is no current torsion. This finding is nonspecific. Correlation with any testicular pain is recommended. The previously seen right epididymal tail mass is no longer present/visualized. Small bilateral hydroceles. Small benign epididymal cysts. Increased scrotal skin thickening. Assessment & Plan Assessment & Plan (1) Bilateral hydrocele: Code(s): N43.3 - Hydrocele, unspecified Category: Medical Plan In office urinalysis results reviewed with the patient today; as noted above. Recent scrotal ultrasound results reviewed with the patient today; as noted above. Patient otherwise denies any bothersome urinary issues. He reports be happy with current voiding parameters. We discussed worsening symptoms. Will obtain scrotal ultrasound in 6 months Follow-up in 6 months with imaging to be completed prior; or sooner with any issues, concerns, and or questions. Orders: Orders AMB Urinalysis Automated Today Z13.9 - Encounter for screening, unspecified US scrotum 6 Months N43.3 - Hydrocele, unspecified Patient Instructions: The patient had an opportunity to ask questions regarding the treatment plan. All questions were answered. Physical exam, labs, and imaging were discussed and reviewed in detail. As well as risks, benefits, and discussion of treatment choices. No major barriers to understanding were identified. The patient expressed understanding and agreement with the above treatment plan. The patient was made aware they should contact our office by phone for worsening of their current condition, the appearance of new symptoms, or with any questions or concerns. Compliance is encouraged with any medications and follow up testing that is ordered. It is a privilege to be allowed the opportunity to participate in? your urological care.? Again, if you have any questions or concerns If you have any questions or concerns please do not hesitate to contact me. The office is [phone]. This note is constructed using voice recognition software. While every effort has been made to ensure accuracy statistical programmer errors may have been included. Yours sincerely, RAVINDRA Tillman Coding Level of Care Code Est Pt Level 3 (42921) Diagnoses Bilateral hydrocele N43.3
--- OUTSIDE RECORDS SUMMARY | 2024-11-14 09:30 | XMS_ITS | Patient Health Record ---
Author Organization [facility] Address [address] [place] [address] Care Team Providers Care Cash Analyst Name Role Phone Contreras Rodriguez Primary Care Provider Unavailab kelley Perdomo Brenda Unavailable [phone] Allergies No Known Allergies Reason For Referral [...] Status Risk Notes Problem Plantar fascial fibromatosis (02611300) Plantar fascial fibromatosis (M72.2) Active confirmed Problem Type II diabetes mellitus without complication (225472507) Type 2 diabetes mellitus without complications (E11.9) Active confirmed Problem 022953728 Hammer toe of left foot (M20.42) Active confirmed Problem 66733015 Chronic gout of foot, unspecified cause, unspecified laterality (M1A.0790) Active confirmed Plan Of Treatment Pending Test Test Name Order Date Hemoglobin A1c 11/11/2015 Insurance Providers Payer Name Payer Address Payer Phone Subscriber Number Group Number Insured Name Patient Relationship to Insured Coverage Start Date Coverage End Date [facility] [address] [place] [address] [id number] Albaro Corona Self - patient is the insured Medical (General) History Medical History History ICD Code type II diabetes hypertension Gout Sciatica Surgical History Surgery Date(Month/Year) R shoulder surgery 06/2011
--- OUTSIDE RECORDS SUMMARY | 2024-11-14 09:30 | XMS_ITS ---
Author Organization [facility] Address [address] [place] [address] Care Team Providers Care Cash Grain Grower Name Role Phone Contreras Rodriguez Primary Care Provider Unavailab Brenda Wu Unavailable [phone] Encounters Encounter Location Date Provider Diagnosis [facility] [address] [place] [address] 10/19/2023 Brenda Perdomo Plan Of Treatment No Information Progress Notes * Albaro DE LA CRUZ EDOB:1975 (49 yo M)Acc No.[id number]:10/19/2023 Progress Note Patient:?Albaro DE LA CRUZ Provider:?Brenda Perdomo DPM :1975???Age:48 Y???Sex:Male Gigi e:10/19/2023 Address:[address] [place], [place] [id number] Pcp:Contreras Rodriguez Subjective: * Chief Complaints: * ??? * Medical History:? Objective: * Vitals:? Assessment: Plan: * Treatment: * Images: * The named appointment provid er may or may not be the originator of this progress note, and it is not deemed complete until electronically signed by the appointment provider. Sign off status: Pending * Provider:?Brenda Perdomo DPM Date:? Generated for Destinyi chanel/Christina/eTransmitting on:?11/14/2024 09:29 AM EST
--- OUTSIDE RECORDS SUMMARY | 2024-11-14 09:30 | XMS_ITS ---
Author Organization [facility] Address [address] [place] [address] Care Team Providers Care Shipping Helper Name Role Phone Contreras Rodriguez Primary Care Provider Unavailab Brenda Wu Unavailable [phone] REASON FOR VISIT cx 10/19 Encounters Encounter Location Date Provider Diagnosis [facility] [address] [place] [address] 09/22/2023 Brenda Perdomo Plan Of Treatment No Information Progress Notes * Albaro DE LA CRUZ EDOB:1975 (48 yo M)Acc No.[id number]:09/22/2023 Patient:?Albaro De La Cruz :1975???Age:48 Y???Sex:Male Address:[address] [place] [address], [address] * true * Date:? Generated for Printi chanel/Christina/eTransmitting on:?11/14/2024 09:29 AM EST
== END 2024-11-14 09:14 | disposition home or self-care (01) ==
PROVIDERS: PCP Physician Assistant; Visit Provider Nurse Practitioner Family
DX: Z13.9 Encounter for screening, unspecified (principal); N43.3 Hydrocele, unspecified
CPT/HCPCS: 99213

== ENCOUNTER → 2024-11-14 08:46 | Outpatient (BNVA) | payer BC, SELFPAY | PROVIDERS: PCP Physician Assistant; Visit Provider Nurse Practitioner Family | DX: N43.3 Hydrocele, unspecified (principal) | CPT/HCPCS: 81003 ==

== ENCOUNTER 2025-02-19 14:48 | Outpatient (AMB) | payer BC, SELFPAY ==
--- NOTE | 2025-02-19 14:53 | MHC.PC.OV ---
Vital Signs 02/19/25 14:54 Height 5 ft 7 in Weight 270 lb 8 oz BMI 42.4 BP 100/70 Blood Pressure Location Lt brachial Position Sitting Pulse 78 Pulse Source Pulse Oximeter Temp 97.1 F Temp Source Temporal Artery Scan Pulse Oximetry (%) 95 Oxygen Delivery Method Room Air Intake Visit Reasons: Annual Exam Intake Note: Patient is here today for a physical. Document Management Specialist Required: No Vending Service Technician: Not Required per policy Accompanied by: Self / Same As Patient Allergies peach [[place]] Allergy (Intermediate, Verified 02/19/25 14:54) SCRATCHY EARS AND BACK OF THROAT apple [Apple] Allergy (Unknown, Verified 02/19/25 14:54) SCRATCHY EARS, BACK OF THROAT Medication List - Last Reconciled 02/19/25 by Contreras Rodriguez PA-C [Diabetic foot inserts As directed] metformin ER 500 mg PO DAILY 90 days Tobacco use date assessed: 02/19/25 Dental Screening Dental Screen Date: 02/19/25 Did you have a dental visit in the last 12 months?: Yes Did you have a dental problem in the last 6 months where you did not have access to dental care?: No Was dental information given to patient?: Patient has dentist HPI Annual Exam HPI Details Patient is a 49-year-old male here for annual physical ?Patient has a past medical history significant for obesity, type 2 diabetes, gout. .. Chronic Achilles tendinitis: He reports his Achilles and ankle pain has been much better .. Obesity: Unfortunately gained weight since last office visit, has been able to lose weight with physical activity and better eating habits. Unfortunately had some left elbow tendinitis which caused him Patient does understand his BMI is over 40 will continue working on physical activity and healthy eating habits. .. DMII:? Has made changes in his diet in his physical activity. Today's A1c is 6.5 which is elevated from previous. He does admit that he has been not as physically active and dietary indiscretion. .. Hyperlipidemia:? Have noted elevated total cholesterol and LDL.? We did discuss perhaps starting cholesterol medication though would like to hold off and work on lifestyle management of his cholesterol at this time. Vaccine: UTD with COVId Vaccine , Need PCV (declines)? Decline Flu??, needs tetanus vaccine though declines today .. Colon cancer screening: Completed Cologuard in 2022- neg- repeat in 3 years [facility] Surgical History History of shoulder surgery Family History Father HIV (human immunodeficiency virus infection) Cirrhosis Substance use disorder Mental health disorder Mother Diabetes Maternal Grandmother Diabetes Hypertension Maternal Aunt Stomach cancer Maternal Aunt Breast cancer Maternal Grandmother Ovarian cancer Social History (Updated 02/19/25 @ 15:06 by Contreras Rodriguez PA-C) Housing: House Alcohol intake: current Alcohol intake frequency: holidays/special occasions only Patient Tobacco Use Status: Current someday Tobacco user Tobacco use type: Cigar e-Cigarette/Vaping Use: Never Used Second Hand Smoke Exposure: No Substance Use Type: Marijuana service: No Current occupational status: employed 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 1. Little interest or pleasure in doing things: not at all 2. Feeling down, depressed, or hopeless: not at all 3. Trouble falling or staying asleep, or sleeping too much: not at all 4. Feeling tired or having little energy: not at all 5. Poor appetite or overeating: not at all 6. Feeling bad about yourself - or that you are a failure or have let yourself or your family down: not at all 7. Trouble concentrating on things, such as reading the newspaper or watching television: not at all 8. Moving or speaking so slowly that other people could have noticed. Or the opposite - being so fidgety or restless that you have been moving around a lot more than usual: not at all 9. Thoughts that you would be better off or of hurting yourself in some way: not at all Total score: 0 Depression Screening Interpretation: Negative Depression Screening Done: Yes 56118 - PHQ-9 Billing: Yes Source: Developed by Drs. Augusto Laboy, Crystal Shukla, Ricky Zamorano and colleagues, with an educational ankit from [employer]. Thrive Questionnaire Date Thrive assessed: 02/19/25 I am a: Patient What is your living situation today?: I have a steady place to live Within the past 12 months, did the food you bought not last and you didn't have the money to get more?: Never true Within the past 12 months, did you worry whether your food would run out before you got money to buy more?: Never true Do you have trouble paying for medicines?: No Do you have trouble getting transportation to medical appointments?: No Do you have trouble paying your heating and electricity bill?: No Do you have trouble taking care of your child, family member or friend?: No Do you have trouble with day-to-day activities such as bathing, preparing meals, shopping, managing finances, etc.?: No Are you currently unemployed and looking for a job?: No Are you interested in more education?: No Please select the resources that you would like help with: None Currently or been in a relationship where the following occur: No concerns reported THRIVE Score: 0 AUDIT C Alcohol Use Questionnaire (AUDIT-C) 1. How often do you have a drink containing alcohol?: Monthly or less 2. How many drinks containing alcohol do you have on a typical day when you are drinking?: 1 or 2 3. How often do you have six or more drinks on one occasion?: Never Total Score: 1 FRANCIS-7 AMB Questionnaire FRANCIS-7 Date FRANCIS - 7 assessed: 02/19/25 Feeling nervous, anxious, or on edge: 0 = Not at all Not being able to stop or control worryin = Not at all Worrying too much about different things: 0 = Not at all Trouble relaxin = Not at all Being so restless that it is hard to sit still: 0 = Not at all Becoming easily annoyed or irritable: 0 = Not at all Feeling afraid as if something awful might happen: 0 = Not at all Total FRANCIS-7 score (0-4 normal; 5-9 mild; 10-14 moderate; 15-21 severe): 0 Source: Developed by Drs. Augusto Laboy, Crystal Shukla, Ricky Zamorano and colleagues, with an educational ankit from [employer]. FRANCIS-7 Assessment Billing FRANCIS-7 Assessment Tool: FRANCIS-7 Assessment 48290 Review of Systems Const Denies body aches, Denies chills, Denies excessive sweating, Denies fatigue, Denies fever(s) and Denies headache(s) Eyes Denies blurry vision ENT Denies dysphagia, Denies vertigo, Denies dizziness, Denies headache(s), Denies hearing loss and Denies tinnitus Card Denies chest pain, Denies chest pain with activity, Denies syncope, Denies irregular heart rhythm and Denies dyspnea Resp Denies chest congestion, Denies cough, Denies hemoptysis, Denies dyspnea and Denies wheezing GI Denies abdominal pain, Denies melena, Denies hematochezia, Denies coffee ground emesis, Denies dysphagia, Denies diarrhea, Denies nausea and Denies vomiting Denies difficulty urinating, Denies dysuria, Denies urinary frequency, Denies urinary hesitancy and Denies urinary urgency Musc Denies arthralgias, Denies limited range of motion, Denies muscle cramps and Denies muscle weakness Skin/Breast Denies rash and Denies skin ulcer Neuro Denies Abnormal speech present, Denies confusion, Denies vertigo, Denies dizziness, Denies syncope, Denies headache(s), Denies memory loss and Denies seizure-like activity Psych Denies anxiety, Denies confusion, Denies depression, Denies memory loss, Denies panic attacks and Denies paranoia Endo Denies excessive sweating, Denies fatigue, Denies flushing, Denies polydipsia and Denies polyuria Aller/Immun Denies wheezing Physical exam (Primary Care) Vital Signs: Last Vital Signs Temp 97.1 F 02/19/25 14:54 Pulse 78 02/19/25 14:54 BP 100/70 02/19/25 14:54 Pulse Ox 95 02/19/25 14:54 Oxygen Delivery Method Room Air 02/19/25 14:54 BMI result Body Mass Index 42.4 BMI Assessment/Plan discussion: High BMI High, discussed plan: lifestyle, weight reduction, dietary and physical activity Tobacco/Smoking Status: Tobacco use Status Tobacco use date assessed 02/19/25 02/19/25 15:01 Patient Tobacco Use Status Current someday Tobacco ( 02/19/25 15:06 Patient has a cigar once in a while) Tobacco use type Cigar 02/19/25 15:06 e-Cigarette/Vaping Use Never Used 02/19/25 15:06 PHQ-9: PHQ-9 Score PHQ-9: Total score 0 02/19/25 15:19 Depression Screening Interpretation: Negative Thrive Assessment: Date of Thrive Assessment Date Thrive assessed 02/19/25 02/19/25 15:01 Currently or been in a relationship where the following occur: No concerns reported Const Other: Obese General: cooperative, comfortable, no acute distress, alert and awake; No confusion Orientation/consciousness: oriented to person, oriented to place, patient oriented x3 and No confusion HENMT Head: Yes normocephalic Ears: external ears normal and TM's normal bilaterally Face and sinus: No sinus tenderness Mouth: Normal oral and palatal mucosa present and tongue normal Teeth and gingiva: dentition normal and gingiva normal Throat: Yes posterior oropharynx normal, Yes tonsils normal and Yes uvula midline Eyes Conjunctivae: conjunctivae normal Sclerae: sclerae normal Pupils: Equal, round and reactive pupils present EOM: EOMs intact bilaterally Direct Ophthalmoscopy: No no photophobia Neck Neck: Yes no lymphadenopathy, No tender and Yes no JVD Thyroid: Thyroid normal Carotids: no bruits Chest Chest palpation & inspection: no tenderness Resp Effort & Inspection: normal respiratory effort, no audible wheezes, not labored and no stridor Auscultation: no crackles, no rales, no rhonchi and no wheezes Cardio Jugular venous distension: no JVD Rate: regular rate, not bradycardic and not tachycardic Rhythm: regular rhythm Bruits: no carotid bruits Peripheral pulses: Peripheral pulses 2+ throughout GI Inspection: Yes normal to inspection, No abdominal wall ecchymosis and No visible herniation Palpation (GI): Soft to palpation, nontender, no guarding, not rigid and No hepatosplenomegaly present Auscultation: normoactive bowel sounds General: Yes no CVA tenderness Back/Spine/Pelvis Back: no CVA tenderness and No back tenderness Cervical Spine: cervical ROM normal Thoracic/Lumbar Spine: thoracic and lumbar spine normal to inspection, straight leg raise negative bilaterally, No thoraco-lumbar ROM limited and No lumbar spinal tenderness Skin Lesions: no lesions Rashes: no rashes Wounds: no wounds Neuro General: oriented to person, oriented to place, patient oriented x3, CN's II-XI intact bilaterally and No confusion Cranial nerves: Yes Equal, round and reactive pupils present and Yes Normal accommodation reflex present Cognition (Neuro): normal cognition Speech: No Abnormal speech present Gait exam (Neuro): Normal gait present Motor exam (neuro): 5/5 motor strength present throughout Extrem Right upper extremity: full ROM; no cyanosis Left upper extremity: full ROM; no cyanosis Right lower extremity: no edema Left lower extremity: no edema Psych Appearance: grossly normal Mental Status: mental status grossly normal Affect: normal affect Attitude: cooperative Thought process: Normal thought process present Results AMB Hemoglobin A1c AMB Hemoglobin A1c 6.5 % Last Edit by KITTY iTnajero on 02/19/25 15:08 Results Reviewed Results Reviewed: Laboratory Last Values Hgb A1c (Clinic) 6.5 % (4.0-6.0) H 02/19/25 14:52 Coding Level of Care Code Est Pt Prev Care 40-64y(35268) Diagnoses Annual physical exam Z00.00 Controlled type 2 diabetes mellitus without complication, without long-term current use of insulin E11.9 Diabetes mellitus complication status: without complication Diabetes mellitus mcfp insulin use: without truck terminal manager use Mixed hyperlipidemia E78.2 Hyperlipidemia type: mixed hyperlipidemia Class 3 obesity E66.813 Additional Codes FRANCIS-7 Assessment Billing - FRANCIS-7 Assessment Tool: FRANCIS-7 Assessment 92487 ([id number]) PHQ-9 - 52787 - PHQ-9 Billing: Yes ([id number]) Assessment & Plan Assessment & Plan (1) Annual physical exam: Code(s): Z00.00 - Encounter for general adult medical examination without abnormal findings Category: Medical Plan: As per HPI (2) Diabetes type 2, controlled: Code(s): E11.9 - Type 2 diabetes mellitus without complications Category: Medical Qualifiers: Diabetes mellitus complication status: without complication Diabetes mellitus truck terminal manager insulin use: without truck terminal manager use Qualified Code(s): E11.9 - Type 2 diabetes mellitus without complications Plan: Patient's type 2 diabetes now well controlled. Most recent A1c appropriate. Continues on metformin 500 daily and has been working on dietary modifications. Goal A1c is to remain below 7.0 (3) HLD (hyperlipidemia): Code(s): E78.5 - Hyperlipidemia, unspecified Category: Medical Qualifiers: Hyperlipidemia type: mixed hyperlipidemia Qualified Code(s): E78.2 - Mixed hyperlipidemia Plan: Patient continues to work on lifestyle dietary modifications. He has been intermittently doing a carnivore diet anticipates his cholesterol being higher though has lost weight in his feeling better. (4) Class 3 obesity: Code(s): E66.813 - Obesity, class 3 Category: Medical Plan: Patient does understand his BMI is over 40 will work on being more physically active and adapting to better eating habits to reduce his weight. Did discuss consideration of GLP 1 Orders: Orders AMB Hemoglobin A1c 02/19/25 E11.9 - Type 2 diabetes mellitus without complications Lipid Panel 02/19/25 E78.2 - Mixed hyperlipidemia Complete Blood Count no Diff 02/19/25 E11.9 - Type 2 diabetes mellitus without complications Prostate Specific Antigen Scr 02/19/25 E11.9 - Type 2 diabetes mellitus without complications, Z12.5 - Encounter for screening for malignant neoplasm of prostate Comprehensive [place]. Panel Fast 02/19/25 E78.2 - Mixed hyperlipidemia Microalbumin, Random (w Creat) 02/19/25 E11.9 - Type 2 diabetes mellitus without complications Patient Instructions: Goal: A1c to remain below 7.0 Barriers: Adherence to physical activity and healthy eating habits
[2025-02-19 14:54] VITALS: BP 100/70; PULSE 78; TEMP 36.2; O2SAT 95; BMI 42.4
--- OUTSIDE RECORDS SUMMARY | 2025-02-19 16:34 | XMS_ITS ---
Author Organization [facility] Address [address] [place] [id number] Care Team Providers Care Paper Goods Machine Operator Name Role Phone Contreras Rodriguez Primary Care Provider Unavailab Brenda Wu Unavailable [phone] Encounters Encounter Location Date Provider Diagnosis [facility] [address] [place] [address] 10/19/2023 Brenda Perdomo Plan Of Treatment No Information Progress Notes * Albaro DE LA CRUZ EDOB:1975 (49 yo M)Acc No.[id number]:10/19/2023 Progress Note Patient:?Albaro DE LA CRUZ Provider:?Brenda Perdomo DPM :1975???Age:48 Y???Sex:Male Gigi e:10/19/2023 Address:[address] [place], [place] [id number] Pcp:Contreras Rodriguez Subjective: * Chief Complaints: * ??? * Medical History:? Objective: * Vitals:? Assessment: Plan: * Treatment: * Images: * The named appointment provid er may or may not be the originator of this progress note, and it is not deemed complete until electronically signed by the appointment provider. Sign off status: Pending * Provider:?Brenda Perdomo DPM Date:? Generated for Printi chanel/Falidya/eTransmitting on:?02/19/2025 04:34 PM EDT
== END 2025-02-19 15:17 | disposition home or self-care (01) ==
LOC: HO.HMCH 14:50
PROVIDERS: PCP Physician Assistant; Visit Provider Physician Assistant
DX: Z00.00 Encounter for general adult medical examination without abnormal findings (principal); E11.9 Type 2 diabetes mellitus without complications; E66.813 Obesity, class 3; Z68.41 Body mass index [BMI] 40.0-44.9, adult; E78.2 Mixed hyperlipidemia

== ENCOUNTER → 2025-02-19 14:48 | Outpatient (BNVA) | payer BC, SELFPAY | PROVIDERS: PCP Physician Assistant; Visit Provider Physician Assistant | DX: Z00.00 Encounter for general adult medical examination without abnormal findings (principal); E66.9 Obesity, unspecified; E11.9 Type 2 diabetes mellitus without complications; E78.2 Mixed hyperlipidemia; E66.813 Obesity, class 3; Z68.41 Body mass index [BMI] 40.0-44.9, adult | CPT/HCPCS: 83036; 96127 ==

== ENCOUNTER 2025-07-22 08:31 | Outpatient (REF) | payer BC, SELFPAY ==
--- NOTE | ~2025-07-22 | US_ITS ---
CLINICAL HISTORY: N43.3 - Hydrocele, unspecified US scrotum with Doppler Comparison: US - US SCROTUM - 10/29/24 08:48 EST Technique: Real time sonographic imaging, including color Doppler and spectral analysis, was performed by the tank terminal gauger. Multiple operations support representative static images were saved for review. Findings: Right testicle is normal in size and echotexture, 4.5 x 2.3 x 3.5 cm. No intratesticular lesion. Stable scattered microlithiasis. Normal color flow with arterial spectral tracing. Left testicle is normal in size and echotexture, 4.2 x 2.3 x 3.1 cm. No intratesticular lesion. Stable scattered microlithiasis. Normal color flow with arterial spectral tracing. Diffuse thickening of right epididymis due to tubular ectasia, right epididymal head simple cyst 5 mm, no hyperemia. Left epididymal head tiny cysts up to 2 mm, no hyperemia. Stable hydroceles, greater on the left. No varicocele. Impression: 1. Stable hydroceles, greater on the left. 2. Stable bilateral testicular mild microlithiasis. 3. Stable diffuse right epididymal tubular ectasia. 4. Stable small epididymal cysts, of doubtful clinical significance. This document has been electronically signed by: Korin Carlton MD on 07/22/2025 12:37:18
--- OUTSIDE RECORDS SUMMARY | 2025-07-22 08:54 | XMS_ITS | Patient Health Record ---
Author Organization [facility] Address [address] [place] [address] Care Team Providers Care Sheet Metal Erector Name Role Phone Contreras Rodriguez Primary Care Provider Unavailab Brenda Wu Unavailable [phone] Allergies No Known Allergies Reason For Referral [...] affected area Externally to feet Twice a day; Duration: 30 days Active Physical Therapy . . . 2-3x/week; Durat ion: 3-4 weeks 01/29/2022 Active Night Splint AFO - L1930 as directed 11/11/2015 Not-Taking Physical Therapy . . . 2-3x/week; Durat ion: 3-4 weeks 12/09/2015 Not-Taking Feldene 20 MG 1 capsule with food Orally Once a day; Duration: 30 day(s) Active zzzExtra Depth Orthopedic Shoes (1 Pair) with Customized Heat Molded Multidensity Innersoles (3 Pair) . . . Dx: NIDDM (E11.9), Hammertoe Foot Deformity (M20.41,M20.42), Preulcerative Skin Lesion(s) (L85.1); Duration: . 11/11/2015 Not-Taking metFORMIN HCl 500 MG 1 tablet with meals Orally Twice a day Active Lisinopril 5 MG 1 tablet Orally Once a day; Duration: 30 day(s) Not-Jaden ing Allopurinol 300 MG 1 tablet Orally Once a day; Duration: 30 day(s) Active Immunizations Vaccine Route Administration [...] Status Risk Notes Problem Plantar fascial fibromatosis (93535256) Plantar fascial fibromatosis (M72.2) Active confirmed Problem Type II diabetes mellitus without complication (105228457) Type 2 diabetes mellitus without complications (E11.9) Active confirmed Problem Acquired hammer toe of left foot ([id number] 3) Hammer toe of left foot (M20.42) Active confirmed Problem Chronic gouty arthritis (48288485) Chronic gout of foot, unspecified cause, unspecified laterality (M1A.0790) Active confirmed Plan Of Treatment Pending Test Test Name Order Date Hemoglobin A1c 11/11/2015 Insurance Providers Payer Name Payer Address Payer Phone Subscriber Number Group Number Insured Name Patient Relationship to Insured Coverage Start Date Coverage End Date [facility] [address] [place] [address] [id number] Albaro Corona Self - patient is the insured Medical (General) History Medical History History ICD Code type II diabetes hypertension Gout Sciatica Surgical History Surgery Date(Month/Year) R shoulder surgery 06/2011
== END 2025-07-22 08:32 | disposition home or self-care (01) ==
LOC: HO.HMGCX 08:31
PROVIDERS: PCP Physician Assistant; Visit Provider Nurse Practitioner Family
DX: N43.3 Hydrocele, unspecified (principal)
CPT/HCPCS: 76870

== ENCOUNTER → 2025-07-22 08:34 | Outpatient (BNV) | payer BC, SELFPAY | PROVIDERS: PCP Physician Assistant; Visit Provider Radiology Diagnostic Radiology | DX: N43.3 Hydrocele, unspecified (principal); N50.3 Cyst of epididymis; N50.89 Other specified disorders of the male genital organs | CPT/HCPCS: 76870 ==

== ENCOUNTER 2025-08-17 08:31 | Outpatient (REF) | payer BC, SELFPAY ==
--- OUTSIDE RECORDS SUMMARY | 2025-08-17 08:34 | XMS_ITS | Patient Health Record ---
Author Organization [facility] Address [address] [place] [address] Care Team Providers Care Clinical Massage Therapist Name Role Phone Contreras Rodriguez Primary Care Provider Unavailab Brenda Wu Unavailable [phone] Allergies No Known Allergies Reason For Referral [...] Problem Status W/U Status Risk Notes Problem Information temporarily unavailable Plantar fascial fibromatosis (M72.2) Active confirmed Problem Information temporarily unavailable Type 2 diabetes mellitus without complications (E11.9) Active confirmed Problem Information temporarily unavailable Hammer toe of left foot (M20.42) Active confirmed Problem Information temporarily unavailable Chronic gout of foot, unspecified cause, unspecified laterality (M1A.0790) Active confirmed Plan Of Treatment Pending Test Test Name Order Date Hemoglobin A1c 11/11/2015 Insurance Providers Payer Name Payer Address Payer Phone Subscriber Number Group Number Insured Name Patient Relationship to Insured Coverage Start Date Coverage End Date [facility] [id number] [place] [address] [id number] Albaro Corona Self - patient is the insured Medical (General) History Medical History History ICD Code type II diabetes hypertension Gout Sciatica Surgical History Surgery Date(Month/Year) R shoulder surgery 06/2011
[2025-08-17 11:22] LABS: Hematocrit 42.2 % (42.0-52.0); Hemoglobin 14.2 g/dl (14.0-18.0); Mean Corpuscular HGB Conc 33.6 g/dl (31.0-36.0); Mean Corpuscular Hemoglobin 28.1 pg (27.0-33.0); Mean Corpuscular Volume 83.4 fL (80.0-98.0); NRBC Abs Auto 0.000 X10*3/uL (0.0-0.012); NRBC Pct Auto 0.0 /100WBC (0.0-0.2); Platelet Count 234 X10*3/uL (160-400); Red Blood Count 5.06 X10*6/uL (4.60-5.80); White Blood Count 7.8 X10*3/uL (4.8-10.8)
[2025-08-17 11:52] LABS: Alanine Aminotransferase 29 U/L (0-40); Albumin Level 4.2 g/dL (3.5-5.0); Alkaline Phosphatase 69 U/L (39-117); Anion Gap 13 (12-20); Aspartate Amino Transferase 24 U/L (5-37); Blood Urea Nitrogen 17 mg/dL (9-16); Calcium 9.2 mg/dL (8.4-10.2); Carbon Dioxide 21 mmol/L (22-29); Chloride 109 mmol/L (96-108); Cholesterol 225 mg/dL (<200); Estimated Glomerular Filt Rate > 60; HDL Cholesterol 44 mg/dL (>40); Potassium 4.0 mmol/L (3.3-5.1); Sodium 139 mmol/L (135-145); Total Protein 7.1 g/dL (6.5-8.0); Triglycerides 122 mg/dL (<150)
[2025-08-17 12:09] LABS: Microalbum/Creatinine Ratio Ur 12.2 ug/mg cr (<30)
== END 2025-08-17 08:32 | disposition home or self-care (01) ==
LOC: HO.HMGCLDS 08:31
PROVIDERS: PCP Physician Assistant; Visit Provider Physician Assistant
DX: E11.9 Type 2 diabetes mellitus without complications (principal); E78.2 Mixed hyperlipidemia; Z12.5 Encounter for screening for malignant neoplasm of prostate
CPT/HCPCS: 36415; 80053; 80061; 82043; 82570; 84153; 85027

== ENCOUNTER 2025-08-21 14:45 | Outpatient (AMB) | payer BC, SELFPAY ==
--- NOTE | 2025-08-21 14:47 | MHC.PC.OV ---
Vital Signs 08/21/25 14:50 08/21/25 15:07 Height 5 ft 7 in Weight 274 lb 6 oz BMI 43.0 BP 142/90 H 138/90 H Respiration 16 Pulse 78 Pulse Source Pulse Oximeter Temp 97.1 F Temp Source Temporal Artery Scan Pulse Oximetry (%) 97 Oxygen Delivery Method Room Air Intake Visit Reasons: f/u DMII Management Accounts Manager Required: No Accompanied by: Spouse Allergies peach ([place]) Allergy (Intermediate, Verified 08/21/25 14:56) SCRATCHY EARS AND BACK OF THROAT apple ([place]) Allergy (Unknown, Verified 08/21/25 14:56) SCRATCHY EARS, BACK OF THROAT Medication List - Last Reconciled 08/21/25 by Contreras Rodriguez PA-C [Diabetic foot inserts As directed] metformin ER 500 mg PO DAILY 90 days prednisone 10 mg PO DIRECTED 9 days Tobacco use date assessed: 02/19/25 Dental Screening Dental Screen Date: 02/19/25 HPI f/u DMII HPI Details Patient is a 49-year-old male here for a follow-up visit ?Patient has a past medical history significant for obesity, type 2 diabetes, gout. .. Bilateral foot and ankle pain The patient reports ongoing issues with ankle and knee pain. A course of prednisone taken for suspected gout also alleviated the ankle and knee symptoms, suggesting an inflammatory etiology. The patient has been attempting to walk four to five miles daily but is experiencing pain in the heel, which the patient suspects may be a heel spur. Previous use of shoe inserts for foot inflammation was not effective. .. class 3 Obesity: Unfortunately gained weight since last office visit, has been able to lose weight with physical activity and better eating habits. Use trying a carnivore diet to help reduce inflammation though did not feel it made any difference Unfortunately had some left elbow tendinitis which caused him Patient does understand his BMI is over 40 will continue working on physical activity and healthy eating habits. .. DMII:? Most recent labs showing elevated fasting blood sugar at 200. Will recheck an A1c to eval for worsening diabetes. Continues on metformin 500 daily .. Hyperlipidemia:? Was recently on a carnivore diet. Have noted elevated total cholesterol and LDL.? We did discuss perhaps starting cholesterol medication though would like to hold off and work on lifestyle management of his cholesterol at this time. Laboratory Tests 10/11/23 02/14/24 08/20/24 11:00 14:59 15:16 RBC Fasting Glucose Hgb A1c (Clinic) 6.5 H 7.2 H 5.5 Cholesterol LDL Cholesterol, C alc PSA Screen Urine Microalbumin 02/19/25 08/17/25 14:52 08:42 RBC 5.06 Fasting Glucose 204 H Hgb A1c (Clinic) 6.5 H Cholesterol 225 H LDL Cholesterol, C alc 157 H PSA Screen 0.67 Urine Microalbumin 16.0 PFSH Surgical History History of shoulder surgery Family History Father HIV (human immunodeficiency virus infection) Cirrhosis Substance use disorder Mental health disorder Mother Diabetes Maternal Grandmother Diabetes Hypertension Maternal Aunt Stomach cancer Maternal Aunt Breast cancer Maternal Grandmother Ovarian cancer Social History Housing: House Alcohol intake: current Alcohol intake frequency: holidays/special occasions only Patient Tobacco Use Status: Current someday Tobacco user Tobacco use type: Cigar e-Cigarette/Vaping Use: Never Used Second Hand Smoke Exposure: No Substance Use Type: Marijuana service: No Current occupational status: employed 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[employer] Cognitive needs: No Hearing needs: No Vision needs: Yes (Glasses) Questionnaire Thrive Questionnaire Date Thrive assessed: 02/19/25 I am a: Patient What is your living situation today?: I have a steady place to live Within the past 12 months, did the food you bought not last and you didn't have the money to get more?: Never true Within the past 12 months, did you worry whether your food would run out before you got money to buy more?: Never true Do you have trouble paying for medicines?: No Do you have trouble getting transportation to medical appointments?: No Do you have trouble paying your heating and electricity bill?: No Do you have trouble taking care of your child, family member or friend?: No Do you have trouble with day-to-day activities such as bathing, preparing meals, shopping, managing finances, etc.?: No Are you currently unemployed and looking for a job?: No Are you interested in more education?: No Please select the resources that you would like help with: None Currently or been in a relationship where the following occur: No concerns reported THRIVE Score: 0 FRANCIS-7 AMB Questionnaire FRANCIS-7 Date FRANCIS - 7 assessed: 02/19/25 Source: Developed by Drs. Augusto Laboy, Crystal Shukla, Ricky Zamorano and colleagues, with an educational ankit from [employer]. Review of Systems Const Denies headache(s) Eyes Denies loss of vision ENT Denies vertigo, Denies dizziness, Denies headache(s) and Denies sore throat Card Denies chest pain, Denies leg edema and Denies lightheadedness Resp Denies cough, Denies hemoptysis and Denies wheezing GI Denies abdominal pain, Denies melena, Denies constipation, Denies diarrhea and Denies vomiting Denies dysuria, Denies urinary frequency and Denies urinary urgency Musc Denies arthralgias, Denies joint swelling, Denies numbness and Denies tingling Neuro Denies Abnormal speech present, Denies behavioral changes, Denies vertigo, Denies dizziness, Denies headache(s), Denies loss of vision, Denies memory loss, Denies numbness and Denies tingling Psych Denies anxiety, Denies behavioral changes, Denies depression, Denies memory loss and Denies panic attacks Ori/Lymph Denies easy bleeding and Denies easy bruising Aller/Immun Denies wheezing Physical exam (Primary Care) Vital Signs: Last Vital Signs Temp 97.1 F 08/21/25 14:50 Pulse 78 08/21/25 14:50 Resp 16 08/21/25 14:50 BP 138/90 H 08/21/25 15:07 Pulse Ox 97 08/21/25 14:50 Oxygen Delivery Method Room Air 08/21/25 14:50 BMI result Body Mass Index 43.0 Tobacco/Smoking Status: Tobacco use Status Tobacco use date assessed 02/19/25 08/21/25 14:53 Patient Tobacco Use Status Current someday Tobacco 08/21/25 14:53 Tobacco use type Cigar 08/21/25 14:53 e-Cigarette/Vaping Use Never Used 08/21/25 14:53 Thrive Assessment: Date of Thrive Assessment Date Thrive assessed 02/19/25 08/21/25 14:53 Currently or been in a relationship where the following occur: No concerns reported Const General: healthy appearing, no acute distress, alert and awake Nutritional Appearance: well nourished Orientation/consciousness: oriented to person, oriented to place and oriented to time HENMT Ears: TM's normal bilaterally General nose exam: Normal nasal mucous membranes and turbinates present Eyes Conjunctivae: conjunctivae normal Sclerae: sclerae normal Pupils: Equal, round and reactive pupils present Neck Neck: Yes no lymphadenopathy and Yes no JVD Thyroid: Thyroid normal Carotids: no bruits Resp Effort & Inspection: normal respiratory effort and not tachypneic Auscultation: no crackles, no rales, no rhonchi and no wheezes Cardio Rate: regular rate Rhythm: regular rhythm Heart sounds: no murmurs and normal S1 and S2 GI Palpation (GI): Soft to palpation, nontender, no hepatomegaly and no splenomegaly Auscultation: normal bowel sounds Skin General skin exam: no rashes or lesions noted and dry skin Neuro General: oriented to person, oriented to place and oriented to time Cranial nerves: Yes Equal, round and reactive pupils present Speech: No Abnormal speech present Gait exam (Neuro): Normal gait present Motor exam (neuro): no tremor noted Extrem Other: BILATERAL ANKLES NOTED SWELLING OVER ANTERIOR AND LATERAL ASPECTS OF ANKLES. Right upper extremity: full ROM Left upper extremity: full ROM Right lower extremity: full ROM; no edema Left lower extremity: full ROM; no edema Psych Mental Status: mental status grossly normal Speech and movement: Normal speech and movement present Affect: normal affect Attitude: cooperative Thought process: Normal thought process present Coding Level of Care Code Est Pt Level 4 (02331) Diagnoses Diabetes type 2, controlled E11.9 Bilateral foot pain M79.671; M79.672 Acute pain of left knee M25.562 Chronicity: acute Skin lesion L98.9 Assessment & Plan Assessment & Plan (1) Diabetes type 2, controlled: Code(s): E11.9 - Type 2 diabetes mellitus without complications Category: Medical Plan: Most recent fasting blood sugar very elevated at 200. Will check an A1c to eval for any worsening diabetes. He continues on metformin 500 A1c goal to 7.0 (2) Bilateral foot pain: Code(s): M79.671 - Pain in right foot; M79.672 - Pain in left foot Category: Medical Plan: For the patient's heel pain, possibly due to a heel spur or plantar fasciitis, x-rays of the feet will be ordered. A referral will be placed to podiatry for further evaluation and potential interventions such as a cortisone injection. To manage inflammatory pain and facilitate activity, a prescription for meloxicam will be sent to the pharmacy for as-needed use, after a discussion of the risks and benefits. (3) Left knee pain: Code(s): M25.562 - Pain in left knee Category: Medical Qualifiers: Chronicity: acute Qualified Code(s): M25.562 - Pain in left knee Plan: Patient has been left knee pain, he does report a reduction in his knee pain with prednisone. Will send for x-ray to eval for any osteoarthritis. (4) Skin lesion: Code(s): L98.9 - Disorder of the skin and subcutaneous tissue, unspecified Category: Medical Plan: Skin lesion over his left facial cheek has gotten larger over the last few months. He would like to see Dermatology for evaluation Orders: Orders XR knee LT 4V 08/21/25 M25.562 - Pain in left knee Uric Acid 08/21/25 M1A.0710 - Idiopathic chronic gout, right ankle and foot, without tophus (tophi) Hemoglobin A1c 08/21/25 E11.9 - Type 2 diabetes mellitus without complications Comprehensive [place]. Panel Fast 08/21/25 E11.9 - Type 2 diabetes mellitus without complications XR foot RT 2V 08/21/25 M79.671 - Pain in right foot XR foot LT 2V 08/21/25 M79.672 - Pain in left foot Erythrocyte Sedimentation Rate 08/21/25 M1A.0710 - Idiopathic chronic gout, right ankle and foot, without tophus (tophi) Referrals Podiatry Referral M77.51 - Other enthesopathy of right foot and ankle, M77.52 - Other enthesopathy of left foot and ankle Dermatology Referral L98.9 - Disorder of the skin and subcutaneous tissue, unspecified Medications: New meloxicam 15 mg PO DAILY 30 tabs 1RF 30 days M25.562 - Pain in left knee
[2025-08-21 14:50] VITALS: BP 142/90; PULSE 78; RESP 16; TEMP 36.2; O2SAT 97; BMI 43.0
[2025-08-21 15:07] VITALS: BP 138/90
--- OUTSIDE RECORDS SUMMARY | 2025-08-21 17:41 | XMS_ITS | Patient Health Record ---
Author Organization [facility] Address [address] [place] [address] Care Team Providers Care Metalizing Machine Operator Automatic Name Role Phone Contreras Rodriguez Primary Care Provider Unavailab Brenda Wu Unavailable [phone] Allergies No Known Allergies Reason For Referral [...] Status Risk Notes Problem Plantar fascial fibromatosis (53745464) Plantar fascial fibromatosis (M72.2) Active confirmed Problem Type II diabetes mellitus without complication (253850589) Type 2 diabetes mellitus without complications (E11.9) Active confirmed Problem Acquired hammer toe of left foot ([id number] 3) Hammer toe of left foot (M20.42) Active confirmed Problem Chronic gouty arthritis (10215064) Chronic gout of foot, unspecified cause, unspecified laterality (M1A.0790) Active confirmed Plan Of Treatment Pending Test Test Name Order Date Hemoglobin A1c 11/11/2015 Insurance Providers Payer Name Payer Address Payer Phone Subscriber Number Group Number Insured Name Patient Relationship to Insured Coverage Start Date Coverage End Date [facility] [address] [place] [address] [id number] Albaro Corona Self - patient is the insured Medical (General) History Medical History History ICD Code type II diabetes hypertension Gout Sciatica Surgical History Surgery Date(Month/Year) R shoulder surgery 06/2011
== END 2025-08-21 15:19 | disposition home or self-care (01) ==
LOC: HO.HMCH 14:46
PROVIDERS: PCP Physician Assistant; Visit Provider Physician Assistant
DX: E11.9 Type 2 diabetes mellitus without complications (principal); M79.671 Pain in right foot; M79.672 Pain in left foot; M25.562 Pain in left knee; L98.9 Disorder of the skin and subcutaneous tissue, unspecified

== ENCOUNTER 2025-08-22 15:51 | Outpatient (AMB) | payer BC, SELFPAY ==
--- NOTE | 2025-08-22 16:02 | A.OFFVIS_ITS ---
Intake Visit Reasons: US f/u Intake Note: Patient is present for US F/U Urology Medication:NONE Antibiotic Allergy:NONE Blood Thinner:NONE Nurse Educator Required: No Dementia Program Director: Dementia Program Director offered & declined Accompanied by: Self / Same As Patient Allergies peach ([place]) Allergy (Intermediate, Verified 08/22/25 16:25) SCRATCHY EARS AND BACK OF THROAT apple (Apple) Allergy (Unknown, Verified 08/22/25 16:25) SCRATCHY EARS, BACK OF THROAT Medication List - Last Reconciled 08/22/25 by ELIJAH Tillman-BC [Diabetic foot inserts As directed] meloxicam 15 mg PO DAILY 30 days metformin ER 500 mg PO DAILY 90 days prednisone 10 mg PO DIRECTED 9 days HPI Comments Details: Albaro is very pleasant 49-year-old male patient of Dr. Rodriguez. He has a past medical history of Achilles tendinitis, hyperlipidemia, diabetes type 2, and gout. He is being followed up today via video telehealth for his scrotal/testicular discomfort. In discussion with the patient today he reports he has had no bothersome urological issues or concerns. He does however discuss recently following up with his PCP for potential issues with tendinitis in his sorting this out. Recent scrotal imaging results were reviewed 08/13 stable hydroceles greater on the left. Stable bilateral testicular mild microlithiasis. Stable diffuse right epididymal tubular ectasia. Stable small epididymal cysts, of doubtful clinical significance per radiology report. Recent PSA results reviewed with the patient today 08/13 0.7. We did discuss annual follow-up for surveillance monitoring however he will continue to follow-up with PCP at this time. He currently denies any testicular discomfort and or pain. He does have a previous history of a vasectomy many years ago. He otherwise denies any bothersome urinary issues. When asked he denies urinary urgency, urinary frequency, incontinence, nocturia, hematuria, dysuria, foul smelling urine, changes to urinary stream, flank pain, fever, and or chills. He is happy with his current voiding parameters. He otherwise denies any other issues or concerns at this time. [facility] Surgical History History of shoulder surgery Family History Father HIV (human immunodeficiency virus infection) Cirrhosis Substance use disorder Mental health disorder Mother Diabetes Maternal Grandmother Diabetes Hypertension Maternal Aunt Stomach cancer Maternal Aunt Breast cancer Maternal Grandmother Ovarian cancer Social History Housing: House Alcohol intake: current Alcohol intake frequency: holidays/special occasions only Patient Tobacco Use Status: Current someday Tobacco user Tobacco use type: Cigar e-Cigarette/Vaping Use: Never Used Second Hand Smoke Exposure: No Substance Use Type: Marijuana service: No Current occupational status: employed 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[employer] Cognitive needs: No Hearing needs: No Vision needs: Yes (Glasses) Review of Systems Const All systems reviewed & are unremarkable except as noted in HPI and below Reports no additional complaints Eyes Reports no additional complaints ENT Reports no additional complaints Card Reports as per HPI Resp Reports no additional complaints GI Reports no additional complaints Reports as per HPI Musc Reports as per HPI Neuro Reports no additional complaints Psych Reports no additional complaints Endo Reports as per HPI Ori/Lymph Reports no additional complaints Aller/Immun Reports no additional complaints Physical Exam Const General: cooperative, healthy appearing, comfortable, no acute distress, well developed, alert and awake Nutritional Appearance: overweight Orientation/consciousness: patient oriented x3 Limitations: no limitations HEENT Head: Yes normal to inspection, Yes normocephalic and Yes atraumatic Ears: hearing grossly normal bilaterally Eyes General: appearance normal, both eyes and all related structures Neck Neck: Yes normal visual inspection and Yes trachea midline Chest Chest palpation & inspection: normal inspection of the chest Resp Effort & Inspection: normal respiratory effort and able to speak in complete sentences Cardio Rate: regular rate GI Inspection: Yes normal to inspection General: Yes no CVA tenderness Back/Spine/Pelvis Back: no CVA tenderness Skin General skin exam: no rashes or lesions noted Neuro General: patient oriented x3 Extrem General: Yes normal to inspection Psych Appearance: well kempt Mental Status: mental status grossly normal Speech and movement: Clear speech present Affect: normal affect Attitude: cooperative Thought process: Normal thought process present Thought content: Normal thought content present Insight: Fair insight present (Psych) Judgement: Fair judgement present (Psych) Telehealth Telehealth Telehealth Platform: Telephone Location of provider rendering services: practice address Location of patient: address on file Patient Identification confirmed using: Name, : Yes Telehealth method: video Patient verbally consented to treatment: Yes Patient verbally consented to billing insurance company: Yes Patient informed of any privacy concerns related to visit: Yes Minutes spent on Phone/Video with Pt.: 15 Results Reviewed Results Reviewed: Date of Service: 07/22/25 Procedure(s): US scrotum Findings: Right testicle is normal in size and echotexture, 4.5 x 2.3 x 3.5 cm. No intratesticular lesion. Stable scattered microlithiasis. Normal color flow with arterial spectral tracing. Left testicle is normal in size and echotexture, 4.2 x 2.3 x 3.1 cm. No intratesticular lesion. Stable scattered microlithiasis. Normal color flow with arterial spectral tracing. Diffuse thickening of right epididymis due to tubular ectasia, right epididymal head simple cyst 5 mm, no hyperemia. Left epididymal head tiny cysts up to 2 mm, no hyperemia. Stable hydroceles, greater on the left. No varicocele. Impression: 1. Stable hydroceles, greater on the left. 2. Stable bilateral testicular mild microlithiasis. 3. Stable diffuse right epididymal tubular ectasia. 4. Stable small epididymal cysts, of doubtful clinical significance. Assessment & Plan Assessment & Plan (1) Bilateral hydrocele: Code(s): N43.3 - Hydrocele, unspecified Category: Medical Plan Recent scrotal ultrasound results reviewed with the patient today; as noted above. Recent PSA results reviewed with the patient today; as noted above Patient otherwise denies any bothersome urinary issues. He reports be happy with current voiding parameters. We discussed surveillance monitoring verses PRN. All questions were answered Follow-up PRN Patient Instructions: The patient had an opportunity to ask questions regarding the treatment plan. All questions were answered. Physical exam, labs, and imaging were discussed and reviewed in detail. As well as risks, benefits, and discussion of treatment choices. No major barriers to understanding were identified. The patient expressed understanding and agreement with the above treatment plan. The patient was made aware they should contact our office by phone for worsening of their current condition, the appearance of new symptoms, or with any questions or concerns. Compliance is encouraged with any medications and follow up testing that is ordered. It is a privilege to be allowed the opportunity to participate in? your urological care.? Again, if you have any questions or concerns If you have any questions or concerns please do not hesitate to contact me. The office is [phone]. This note is constructed using voice recognition software. While every effort has been made to ensure accuracy buffer operator errors may have been included. Yours sincerely, ELIJAH Tillman-CHRISTOPH Coding Level of Care Code Tele Est Pt Level 3 (20845) Diagnoses Bilateral hydrocele N43.3
--- OUTSIDE RECORDS SUMMARY | 2025-08-22 21:58 | XMS_ITS | Patient Health Record ---
Author Organization [facility] Address [address] [place] [address] Care Team Providers Care Brim Raiser Name Role Phone Contreras Rodriguez Primary Care Provider Unavailab Brenda Wu Unavailable [phone] Allergies No Known Allergies Reason For Referral [...] Status Risk Notes Problem Plantar fascial fibromatosis (91449445) Plantar fascial fibromatosis (M72.2) Active confirmed Problem Type II diabetes mellitus without complication (716578798) Type 2 diabetes mellitus without complications (E11.9) Active confirmed Problem Acquired hammer toe of left foot ([id number] 3) Hammer toe of left foot (M20.42) Active confirmed Problem Chronic gouty arthritis (26852709) Chronic gout of foot, unspecified cause, unspecified laterality (M1A.0790) Active confirmed Plan Of Treatment Pending Test Test Name Order Date Hemoglobin A1c 11/11/2015 Insurance Providers Payer Name Payer Address Payer Phone Subscriber Number Group Number Insured Name Patient Relationship to Insured Coverage Start Date Coverage End Date [facility] [address] [place] [address] [id number] Albaro Corona Self - patient is the insured Medical (General) History Medical History History ICD Code type II diabetes hypertension Gout Sciatica Surgical History Surgery Date(Month/Year) R shoulder surgery 06/2011
== END 2025-08-22 16:54 | disposition home or self-care (01) ==
LOC: HO.HUSH 15:51
PROVIDERS: PCP Physician Assistant; Visit Provider Nurse Practitioner Family
DX: N43.3 Hydrocele, unspecified (principal)
CPT/HCPCS: 99213

== ENCOUNTER 2025-08-31 08:24 | Outpatient (REF) | payer BC, SELFPAY ==
--- NOTE | ~2025-08-31 | XR_ITS ---
EXAMINATION: XR FOOT, RIGHT CLINICAL INFORMATION: M79.671 - Pain in right foot COMPARISON: 07/24/2021 TECHNIQUE: AP, lateral, and oblique views of the right foot. FINDINGS: Again seen are marginal osteophytes at the first MTP joint. There is mild to moderate first MTP joint space narrowing, slightly increased from the prior. There is hallux valgus deformity. There is a small calcaneal plantar enthesophyte and a small the ED in size enthesophyte at Achilles tendon insertion on calcaneus, both have increased in size. XR/XR foot RT min 3V IMPRESSION: [id number] first MTP joint osteophytes and mild hallux valgus deformity. Calcaneal spurs have increased in size. Electronically signed by: Lenard Aguilar MD 09/02/2025 10:01 AM EZ
--- NOTE | ~2025-08-31 | XR_ITS ---
EXAMINATION: XR KNEE, LEFT CLINICAL INFORMATION: M25.562 - Pain in left knee COMPARISON: X-ray 09/17/2013 TECHNIQUE: Four views of the left knee. FINDINGS: No visible acute fracture, dislocation or suspicious bony lesion. Mild medial compartment joint space narrowing. Patellofemoral joint space is grossly intact on the lateral view, suboptimal patellofemoral view. No significant effusion. No abnormal soft tissue calcification. XR/XR knee LT 4V IMPRESSION: Mild medial compartment arthritis Electronically signed by: Chapo Milian MD 09/02/2025 07:20 AM EST
--- NOTE | ~2025-08-31 | XR_ITS ---
EXAMINATION: XR SHOULDER, LEFT CLINICAL INFORMATION: M25.512 - Pain in left shoulder COMPARISON: X-ray 10/24/2019 TECHNIQUE: AP external rotation, Grashey, scapular Y, and axillary views of the left shoulder. FINDINGS: Mild acromioclavicular arthritis. No fracture. Glenohumeral and alignment is anatomic with normal joint space. No abnormal soft tissue calcifications. XR/XR shoulder LT min 2V IMPRESSION: Mild acromioclavicular arthritis Electronically signed by: Chapo Milian MD 09/02/2025 07:18 AM EZ
--- NOTE | ~2025-08-31 | XR_ITS ---
EXAMINATION: XR FOOT, LEFT CLINICAL INFORMATION: M79.672 - Pain in left foot COMPARISON: 07/24/2021 TECHNIQUE: AP, lateral, and oblique views of the left foot. FINDINGS: There is enthesophyte or tug lesion at the lateral base of the proximal phalanx of the great toe. Moderate sized Achilles tendon and minute fascial enthesophytes are present. The Achilles enthesophyte has enlarged. No other abnormalities are evident. XR/XR foot LT min 3V IMPRESSION: Chronic changes with calcaneal spurs and a spur at the lateral base of the first proximal phalanx. Electronically signed by: Lenard Aguilar MD 09/02/2025 09:58 AM EST
--- OUTSIDE RECORDS SUMMARY | 2025-08-31 08:27 | XMS_ITS | Patient Health Record ---
Author Organization [facility] Address [address] [place] [address] Care Team Providers Care Compressor Operator Name Role Phone Contreras Rodriguez Primary Care Provider Unavailab Brenda Wu Unavailable [phone] Allergies No Known Allergies Reason For Referral [...] Status Risk Notes Problem Plantar fascial fibromatosis (62085140) Plantar fascial fibromatosis (M72.2) Active confirmed Problem Type II diabetes mellitus without complication (030457912) Type 2 diabetes mellitus without complications (E11.9) Active confirmed Problem Acquired hammer toe of left foot ([id number] 3) Hammer toe of left foot (M20.42) Active confirmed Problem Chronic gouty arthritis (88648094) Chronic gout of foot, unspecified cause, unspecified laterality (M1A.0790) Active confirmed Plan Of Treatment Pending Test Test Name Order Date Hemoglobin A1c 11/11/2015 Insurance Providers Payer Name Payer Address Payer Phone Subscriber Number Group Number Insured Name Patient Relationship to Insured Coverage Start Date Coverage End Date [facility] [address] [place] [address] [id number] Albaro Corona Self - patient is the insured Medical (General) History Medical History History ICD Code type II diabetes hypertension Gout Sciatica Surgical History Surgery Date(Month/Year) R shoulder surgery 06/2011
[2025-08-31 12:08] LABS: Alanine Aminotransferase 27 U/L (0-40); Albumin Level 4.3 g/dL (3.5-5.0); Alkaline Phosphatase 61 U/L (39-117); Anion Gap 9 (12-20); Aspartate Amino Transferase 23 U/L (5-37); Blood Urea Nitrogen 14 mg/dL (9-16); Calcium 9.3 mg/dL (8.4-10.2); Carbon Dioxide 25 mmol/L (22-29); Chloride 110 mmol/L (96-108); Estimated Glomerular Filt Rate > 60; Potassium 4.2 mmol/L (3.3-5.1); Sodium 140 mmol/L (135-145); Total Protein 7.1 g/dL (6.5-8.0); Uric Acid 5.9 mg/dL (3.4-7.0)
== END 2025-08-31 08:25 | disposition home or self-care (01) ==
LOC: HO.HMGCLDS 08:24
PROVIDERS: PCP Physician Assistant; Visit Provider Physician Assistant
DX: M1A.0710 Idiopathic chronic gout, right ankle and foot, without tophus (tophi) (principal); E11.9 Type 2 diabetes mellitus without complications; M25.562 Pain in left knee; M79.672 Pain in left foot; M25.512 Pain in left shoulder
CPT/HCPCS: 36415; 73030; 73564; 73630; 80053; 83036; 84550; 85652

== ENCOUNTER → 2025-08-31 08:52 | Outpatient (BNV) | payer BC, SELFPAY | PROVIDERS: PCP Physician Assistant; Visit Provider Radiology Diagnostic Ultrasound | DX: M17.12 Unilateral primary osteoarthritis, left knee (principal); M19.012 Primary osteoarthritis, left shoulder; M77.32 Calcaneal spur, left foot; M77.31 Calcaneal spur, right foot; M77.41 Metatarsalgia, right foot; M20.11 Hallux valgus (acquired), right foot | CPT/HCPCS: 73030; 73564; 73630 ==